=== PATIENT | female | born 1940 | race Caucasian/White ===

== ENCOUNTER 2022-06-04 14:30 | Outpatient (RCR) | payer MEDICARE, MEDICAID, SELFPAY ==
[2022-05-28 13:56] VITALS: BP 165/82; PULSE 77; RESP 16; TEMP 36.3; BMI 30.1
--- NOTE | 2022-05-28 15:24 | HP.PCM_ITS ---
History of Present Illness Date of Service: 05/28/22 Chief Complaint: Right lateral leg ulcer after dog bite on 04/25/22 History of Wound: 81 year old female presents for evaluation of her non healing right lateral leg ulcer that occurred 04/25/22 after she was bit by her cousin's danita more dog. She has seen her PCP several times about this and been to [facility] in [place]. On 05/06/22 she was at her PCPs office due to increased pain and redness and she received a shot of Rocephin and was started on Bactrim. She was being treated with Augmentin prior to that visit. She states she also has been treated with doxycycline. She has been experiencing increased pain and discomfort. She has a medical history of HTN and some kidney issues. She had packing in from the ED that was removed after 7 days as instructed by the ED. She has been covering the ulcer with gauze. Wound culture obtained today, 05/29/22. Today she denies any fever, chills, nausea or vomiting. She states her appetite is good. Progress of Wound: Right lateral leg ulcer with small opening but there is undermining around the entire circumference of the opening with the deepest being 1.5 cm. This is very painful for her. No significant redness or odor. [facility] Medical History Hypertension Kidney disease Home Medications hydrochlorothiazide 25 mg tablet mg PO DAILY 05/28/22 [History Last Taken Unknown] Allergy/AdvReac Type Severity Reaction Status Date / Time acetaminophen [From Vicodin] AdvReac Other Verified 05/28/22 14:07 hydrocodone [From Vicodin] AdvReac Other Verified 05/28/22 14:07 Family History no significant family his no significant family history Social History (Updated 05/29/22 @ 09:32 by Macrina Kay ASSEMBLER FAUCETS, ASSEMBLER [employer]-C) Smoking Status: Never smoker alcohol intake: current alcohol intake frequency: holidays/special occasions only ROS Constitutional Constitutional: Denies fever(s) Eyes Eyes: Reports requires corrective lenses ENT HEENT: Reports none Cardiovascular Cardiovascular: Denies chest pain or dyspnea Respiratory/Chest Respiratory/Chest: Denies cough or dyspnea Gastrointestinal Gastrointestinal: Reports none Musculoskeletal Musculoskeletal: Reports as per HPI Integumentary Integumentary: Reports as per HPI and skin ulcer Neurologic Neurologic: Reports as per HPI Psychiatric Psychiatric: Reports none Endocrine Endocrinology: Reports none Vital Signs Vital Signs Vital Signs: 05/28/22 13:56 Temperature 97.3 F L Temperature Source Temporal Pulse Rate 77 Respiratory Rate 16 Blood Pressure 165/82 H Blood Pressure Mean 109 Blood Pressure Source Monitor Blood Pressure Position Sitting Blood Pressure Location Left Arm Oxygen Delivery Method Room Air Weight Weight: 170 lb Body Mass Index (BMI) 30.1 Physical Exam Const alert, oriented x3 and no apparent distress General Appearance: cooperative HEENT normocephalic Eyes PERRL Neck full ROM Resp normal respiratory effort and normal air movement Effort and Inspection: able to speak in complete sentences Cardio regular rate and regular rhythm GI normal to inspection, nondistended, normoactive bowel sounds, soft to palpation and non-tender Extremity full ROM and normal capillary refill Peripheral Pulses: Yes dorsalis pedis pulses present bilateral 2+ Skin Wounds: wounds noted Wound Narrative: Right lateral leg ulcer with small opening but there is undermining around the entire circumference of the opening with the deepest being 1.5 cm. This is very painful for her. No significant redness or odor. Neuro oriented x3 Psych mental status grossly normal Debridement Note Debridement Note Wound debrided: lateral leg ulcer Laterality: Right Wound Grade/Stage: unstageable Type of Debridement: Excisional debridement Anesthesia Used: 4% Lidocaine Solution and 5% Lidocaine Gel Depth: Down to and including healthy tissue and in the subcutaneous layer Percentage of wound debrided: 100 Instrument Used: 3mm curette Tissue Removed: Devitalized tissue and slough Severity: Fat Layer Exposed Amount of bleeding with debridement: Mild Bleeding Controlled with: Compression and gauze Patient tolerated procedure: Patient tolerated procedure well Debridement Free Text: Difficult to debride due to the small ulcer opening and the amount of the undermining Post-Debridement Measurements and Additional Note: Post-Debridement Measurements/Treatment - Nurse 1 - General Ulcer Assessment Start: 05/28/22 13:52 Freq: Status: Active Protocol: MELISSA Activity Type Activity Date Activity User E-sign Co-sign Detail Recorded Client Recorded Date Recorded By Document 05/28/22 13:56 [facility] [id number] 05/28/22 14:04 [facility] 05/28/22 13:56 - Today's Visit Information Type of service Initial Visit Arrival Mode Ambulatory Transfer Assistance None Accompanied by daughter Patient Identification Verified (Name & Yes ) Patient Requires Transmission-Based No Precautions Height and Weight Height 5 ft 3 in Weight 170 lb Weight in Pounds 170.0 lbs Weight Measurement Method Stated by Patient Body Mass Index (BMI) 30.1 BMI Classification Obese BSA - Kiara 1.80 Vital Signs Temperature (97.8 F-99.1 F) 97.3 F L Temperature Source Temporal Pulse Rate (60-100) 77 Pulse Location Monitor Respiratory Rate (12-18) 16 Respiratory rate source Observation Oxygen Delivery Method Room Air Blood Pressure (90/60-120/80) 165/82 H Blood Pressure Mean 109 Source Monitor Position Sitting Blood Pressure Location Left Arm History Since Last Visit- (Skip if this is Patient's initial visit) Left Footwear Regular Shoe Right Footwear Regular Shoe Pain Scale: 0-10 Numeric Is Patient Pain Free? Yes Lower Extremity Assessment/ Foot Assessment/ Toe Nail Assessment Left -Posterior Tibial Doppler Monophasic -Dorsalis Pedis Doppler Monophasic -Extremity Color Pale -Hair Growth on Legs Yes -Hair Growth on Toes No -Temperature of Extremity Cool -Thick Yes -Discolored Yes -Deformed No -Improper Length & Hygeine Yes Right -Posterior Tibial Doppler Monophasic -Dorsalis Pedis Doppler Monophasic -Extremity Color Pale -Hair Growth on Legs Yes -Hair Growth on Toes No -Temperature of Extremity Cool -Thick Yes -Discolored Yes -Deformed No -Improper Length & Hygeine Yes Communication Assessment Preferred language Bah[place]i Lead Php Developer Required No Able to Read Yes Able to Write Yes Communication Tools None Right Hearing Abillity Normal Left Hearing Abillity Normal Visual Assistive Devices Glasses Teaching Assessment Preferences Verbal,Written, Audio/Visual, Demonstration Barriers to Learning None Readiness To Learn Excellent Willingness to Engage in Self Management High Activies Readiness to Engage in Self Management High Activities Anxiety Level Calm Cooperation Cooperative Perception Coherent Interest in Health Problem Asks Questions Education Importance Acknowledges Need Does Patient Smoke tobacco or other No substances Smoking Status Never smoker Is Patient Diabetic No Functional Assessment Recent Decline in Ability to Perform Denies Any Declines Culture/Anabaptist/Stocking Inspector Cultural/Anabaptist Needs that may affect No Treatment Plan WC - Nurse 1 - General Ulcer Measurement Start: 05/28/22 13:52 Freq: Status: Active Protocol: Activity Type Activity Date Activity User E-sign Co-sign Detail Recorded Client Recorded Date Recorded By Document 05/28/22 13:56 [facility] [id number] 05/28/22 14:04 [facility] 05/28/22 13:56 Wound Center Nurse 1 #1- R LAT LE -Combined with other wound No -Current Size (cm) - Length 0.4 -Current Size (cm) - Width 0.3 -Current Size (cm) - Depth 0.5 -Total Square Cm 0.12 -Date of Last Picture (Recall this 05/28/22 field) -Photo Taken Yes -Epithelialization None Present -Tunneling No -Undermining/Tunneling No -Circular Undermining No -Exudate Amt Medium -Exudate Type Serosanguineous -Wound Margin Distinct, Outline Attached -Granulation Amt Large (67-100%) -Granulation Quality Red -Slough/Fibrin Yes -Necrosis Amt Small (1-33%) -Necrotic Tissue Type Adherent Slough -Texture (Rocio-wound Skin Appearance) Assessed -Moisture (Rocio-wound Skin Appearance) Assessed -Color (Rocio-wound Skin Appearance) Assessed, Erythema -Temperature (Rocio-wound Skin No Abnormality Appearance) (Pt Warm) -Tenderness on Palpation (Rocio-wound No Skin Appearance) -Ulcer Cleansing Rinsed/ Irrigated with Saline -Foul Odor after Cleansing No -Anesthetic Used 5% Lidocaine Gel Lower Limb Edema Present Yes Right Calf (cm) 36 Right Ankle (cm) 21 Left Calf (cm) 33 Left Ankle (cm) 22 WC - Nurse 2 - General Ulcer CM Notes Start: 05/28/22 13:52 Freq: Status: Active Protocol: Activity Type Activity Date Activity User E-sign Co-sign Detail Recorded Client Recorded Date Recorded By Document 05/28/22 14:20 MW [id number] 05/28/22 14:35 MW 05/28/22 14:20 Wound Center Nurse 2 #1- R LAT LE -Time 14:21 -Correct Patient Yes -Correct Side, Site, Position Yes -Correct Procedure Yes -Procedure Performed Yes -Type of Procedure Debridement -Clinical Debridement Subcutaneous -Tissue Removed Subcutaneous -Post Debridement (cm) - Length 0.6 -Post Debridement (cm) - Width 0.5 -Post Debridement (cm) - Depth 0.5 -Total Square (Post) (cm) 0.30 -Area of Debridement (cm) - Length 0.6 -Area of Debridement (cm) - Width 0.5 -Total Square (Area) (cm) 0.30 -Tunneling Yes -Tunneling Position (O'clock) 3 -Tunneling Distance (cm) 1.5 -Undermining/Tunneling Yes -Circular Undermining Yes -Wound/Ulcer Outcome Not Healed -Ulcer Cleansing Rinsed/ Irrigated with Saline -Foul Odor after Cleansing No -Bioengineered Tissue No -Bleeding Controlled with Pressure -Treatment Response Procedure Tolerated Well -Offloading No -Debridement - Subq, 1st 20sq cm Yes Pain Scale: 0-10 Numeric Is Patient Pain Free? Yes - Nurse 3 - General Ulcer D/C NN Start: 05/28/22 13:52 Freq: Status: Active Protocol: Activity Type Activity Date Activity User E-sign Co-sign Detail Recorded Client Recorded Date Recorded By Document 05/28/22 14:50 [facility] [id number] 05/28/22 14:51 [facility] 05/28/22 14:50 Wound Care Nurse 3 #1- R LAT LE -Ulcer Cleansing Rinsed/ Irrigated with Saline -Foul Odor after Cleansing No -Primary Dressing Applied Nugauze, Iodoform -Other Dressing DRSG PER DL FIRE ALARM DISPATCHER -Primary Dressing Covered/Secured with Dry Gauze & Roll Gauze, Secured with Tape -Nugauze, Iodoform 1/4 1 Right -Tubular Bandage Double Layer -Size of Tubigrip Used Size D -Size D ($) 1 Treatment Response Procedure Tolerated Well Pain Scale: 0-10 Numeric Is Patient Pain Free? Yes - Visit Discharge Discharge Condition Stable Ambulatory Status Ambulatory Transportation Private Auto Accompanied by VALE Charges/Coding Visit Charges Office Visits / Consults: 54106 OV L3 New (25 modifier) Procedures Integumentary 111xxx-113xx: [id number] Feli subq tissue 20 sq cm/< Assessment/Plan Assessment/Plan (1) Non-healing ulcer of lower leg: CODE(S): L97.909 - Non-pressure chronic ulcer of unspecified part of unspecified lower leg with unspecified severity (2) Dog bite of right lower leg: CODE(S): S81.851A - Open bite, right lower leg, initial encounter; W54.0XXA - Bitten by dog, initial encounter PLAN: Plan Patient was evaluated at the wound center today and a subcutaneous debridement was performed. She has a small ulcer opening but there is undermining around the entire circumference of the ulcer opening, with the deepest area being 1.5 cm. It is very difficult to do wound care. Wound culture obtained today. Depending on the results of the culture, it may necessitate the need for treatment with antibiotics. Wound care will be difficult due to the size of the ulcer opening. We will pack 1/4 iodoform gauze in the ulcer every other day. On the days the packing is changed, wash the ulcer with soap and water and repack with iodoform and top with gauze. Will refer her to Dr. Sepulveda for evaluation for possible surgical debridement for better wound care management. Discussed increasing protein intake to help promote wound healing and increasing Vitamin C 1,000 mg daily. Follow up one week. Call or come in sooner if develop questions or concerns.
[2022-06-04 14:35] VITALS: BP 152/84; PULSE 88; RESP 16; TEMP 36.2; BMI 30.1
--- NOTE | 2022-06-04 16:34 | PN.PCM_ITS ---
History of Present Illness Date of Service: 06/04/22 Chief Complaint: Right lateral leg ulcer after dog bite on 04/25/22 History of Wound: 81 year old female presents for evaluation of her non healing right lateral leg ulcer that occurred 04/25/22 after she was bit by her cousin's danita more dog. She has seen her PCP several times about this and been to [facility] in [place]. On 05/06/22 she was at her PCPs office due to increased pain and redness and she received a shot of Rocephin and was started on Bactrim. She was being treated with Augmentin prior to that visit. She states she also has been treated with doxycycline. She has been experiencing increased pain and discomfort. She has a medical history of HTN and some kidney issues. She had packing in from the ED that was removed after 7 days as instructed by the ED. She has been covering the ulcer with gauze. Wound culture obtained on 05/29/22 which was positive for Staphylococcus pseudintermediu and she was started on Doxycycline. Today she denies any fever, chills, nausea or vomiting. She states her appetite is good. Progress of Wound: Right lateral leg ulcer is painful, there is small opening but there is undermining from 7-5 o'clock with the deepest being 1.5 cm. Objective Data Objective Data Vital Signs: Vital Signs Temp Pulse Resp BP O2 Del Method 97.1 F L 88 16 152/84 H Room Air 06/04/22 14:35 06/04/22 14:35 06/04/22 14:35 06/04/22 14:35 06/04/22 14:35 Oxygen Delivery Method Room Air Weight: 170 lb Body Mass Index (BMI) 30.1 Lab / Micro Data Micro: Microbiology 05/28/22 14:30 Wound Abcess - Leg, Right Gram Stain - Final 05/28/22 14:30 Wound Abcess - Leg, Right Wound Culture - Final Staphylococcus pseudintermediu 05/28/22 14:30 Wound Abcess - Leg, Right Anaerobic Culture - Final No anaerobic bacteria isolated. Charges/Coding Procedures Integumentary 111xxx-113xx: 30991 Feli subq tissue 20 sq cm/< Physical Exam Const alert and oriented x3 General Appearance: cooperative HEENT normocephalic Resp normal respiratory effort Effort and Inspection: able to speak in complete sentences Cardio regular rate Extremity normal capillary refill Peripheral Pulses: Yes dorsalis pedis pulses present bilateral 2+ Skin Wounds: wounds noted Wound Narrative: Right lateral leg ulcer is painful, there is small opening but there is undermining from 7-5 o'clock with the deepest being 1.5 cm. Neuro oriented x3 Psych mental status grossly normal Debridement Note Debridement Note Wound debrided: lateral leg ulcer Laterality: Right Wound Grade/Stage: unstageable Type of Debridement: Excisional debridement Anesthesia Used: 4% Lidocaine Solution and 5% Lidocaine Gel Depth: Down to and including healthy tissue and in the subcutaneous layer Percentage of wound debrided: 100 Instrument Used: 3mm curette Tissue Removed: Devitalized tissue and slough Severity: Fat Layer Exposed Amount of bleeding with debridement: Mild Bleeding Controlled with: Compression and gauze Patient tolerated procedure: Patient tolerated procedure well Debridement Free Text: Difficult to debride due to the small ulcer opening and the amount of the undermining Post-Debridement Measurements and Additional Note: Post-Debridement Measurements/Treatment - Nurse 1 - General Ulcer Assessment Start: 05/28/22 13:52 Freq: Status: Active Protocol: .LOWHARJIT Activity Type Activity Date Activity User E-sign Co-sign Detail Recorded Client Recorded Date Recorded By Document 05/28/22 13:56 [facility] [id number] 05/28/22 14:04 [facility] Document 06/04/22 14:35 MA [id number] 06/04/22 14:37 MA 05/28/22 06/04/22 13:56 14:35 - Today's Visit Information Type of service Initial Visit Follow-up Visit (Physician/SALES SPECIALIST ) Arrival Mode Ambulatory Ambulatory Transfer Assistance None Accompanied by daughter Patient Identification Verified (Name & Yes Yes ) Patient Requires Transmission-Based No Precautions Height and Weight Height 5 ft 3 in Weight 170 lb Weight in Pounds 170.0 lbs Weight Measurement Method Stated by Patient Body Mass Index (BMI) 30.1 30.1 BMI Classification Obese Obese BSA - Kiara 1.80 Vital Signs Temperature (97.8 F-99.1 F) 97.3 F L 97.1 F L Temperature Source Temporal Temporal Pulse Rate (60-100) 77 88 Pulse Location Monitor Monitor Respiratory Rate (12-18) 16 16 Respiratory rate source Observation Observation Oxygen Delivery Method Room Air Room Air Blood Pressure (90/60-120/80) 165/82 H 152/84 H Blood Pressure Mean (mm Hg) 109 106 Source Monitor Monitor Position Sitting Sitting Blood Pressure Location Left Arm Left Arm History Since Last Visit- (Skip if this is Patient's initial visit) Has dressing in place as prescribed Yes Has compression in place as prescribed Yes Has offloadiing in place as prescribed Yes Experienced any changes in pain level or Yes management Left Footwear Regular Shoe Regular Shoe Right Footwear Regular Shoe Regular Shoe Pain Scale: 0-10 Numeric Is Patient Pain Free? Yes Yes Lower Extremity Assessment/ Foot Assessment/ Toe Nail Assessment Left -Posterior Tibial Doppler Monophasic -Dorsalis Pedis Doppler Monophasic -Extremity Color Pale -Hair Growth on Legs Yes -Hair Growth on Toes No -Temperature of Extremity Cool -Thick Yes -Discolored Yes -Deformed No -Improper Length & Hygeine Yes Right -Posterior Tibial Doppler Monophasic -Dorsalis Pedis Doppler Monophasic -Extremity Color Pale -Hair Growth on Legs Yes -Hair Growth on Toes No -Temperature of Extremity Cool -Thick Yes -Discolored Yes -Deformed No -Improper Length & Hygeine Yes Communication Assessment Preferred language Danish Lighter Captain Required No Able to Read Yes Able to Write Yes Communication Tools None Right Hearing Abillity Normal Left Hearing Abillity Normal Visual Assistive Devices Glasses Teaching Assessment Preferences Verbal,Written, Audio/Visual, Demonstration Barriers to Learning None Readiness To Learn Excellent Willingness to Engage in Self Management High Activies Readiness to Engage in Self Management High Activities Anxiety Level Calm Cooperation Cooperative Perception Coherent Interest in Health Problem Asks Questions Education Importance Acknowledges Need Does Patient Smoke tobacco or other No substances Smoking Status Never smoker Is Patient Diabetic No Functional Assessment Recent Decline in Ability to Perform Denies Any Declines Culture/Orthodox/Skill Labor Cultural/Orthodox Needs that may affect No Treatment Plan WC - Nurse 1 - General Ulcer Measurement Start: 05/28/22 13:52 Freq: Status: Active Protocol: Activity Type Activity Date Activity User E-sign Co-sign Detail Recorded Client Recorded Date Recorded By Document 05/28/22 13:56 [facility] [id number] 05/28/22 14:04 [facility] Document 06/04/22 14:35 MA [id number] 06/04/22 14:37 MA 05/28/22 06/04/22 13:56 14:35 Wound Center Nurse 1 #1- R LAT LE -Combined with other wound No -Current Size (cm) - Length 0.4 1.2 -Current Size (cm) - Width 0.3 0.6 -Current Size (cm) - Depth 0.5 0.5 -Total Square Cm 0.12 0.72 -Date of Last Picture (Recall this 05/28/22 field) -Photo Taken Yes -Epithelialization None Present -Tunneling No Yes -Tunneling Position (O'clock) 11 -Tunneling Distance (cm) 1.2 -Undermining/Tunneling No -Circular Undermining No Yes -Exudate Amt Medium Small -Exudate Type Serosanguineous Serosanguineous -Wound Margin Distinct, Flat & Intact Outline Attached -Granulation Amt Large (67-100%) Large (67-100%) -Granulation Quality Red Red -Slough/Fibrin Yes -Necrosis Amt Small (1-33%) None Present (0 %) -Necrotic Tissue Type Adherent Slough -Texture (Rocio-wound Skin Appearance) Assessed Assessed, Localized Edema -Moisture (Rocio-wound Skin Appearance) Assessed Assessed -Color (Rocio-wound Skin Appearance) Assessed, Assessed, Erythema Hemosiderin Staining -Temperature (Rocio-wound Skin No Abnormality No Abnormality Appearance) (Pt Warm) (Pt Warm) -Tenderness on Palpation (Rocio-wound No No Skin Appearance) -Ulcer Cleansing Rinsed/ Rinsed/ Irrigated with Irrigated with Saline Saline -Foul Odor after Cleansing No No -Anesthetic Used 5% Lidocaine 4% Lidocaine Gel Solution Lower Limb Edema Present Yes Right Calf (cm) 36 Right Ankle (cm) 21 Left Calf (cm) 33 Left Ankle (cm) 22 WC - Nurse 2 - General Ulcer CM Notes Start: 05/28/22 13:52 Freq: Status: Active Protocol: Activity Type Activity Date Activity User E-sign Co-sign Detail Recorded Client Recorded Date Recorded By Document 05/28/22 14:20 [facility] [id number] 05/28/22 14:35 MW Document 06/04/22 15:58 PL [id number] 06/04/22 15:59 PL 05/28/22 06/04/22 14:20 15:58 Wound Center Nurse 2 #1- R LAT LE -Time 14:21 15:03 -Correct Patient Yes Yes -Correct Side, Site, Position Yes Yes -Correct Procedure Yes Yes -Procedure Performed Yes Yes -Type of Procedure Debridement Debridement -Clinical Debridement Subcutaneous Subcutaneous -Tissue Removed Subcutaneous Subcutaneous -Post Debridement (cm) - Length 0.6 1.2 -Post Debridement (cm) - Width 0.5 0.7 -Post Debridement (cm) - Depth 0.5 0.4 -Total Square (Post) (cm) 0.30 0.84 -Area of Debridement (cm) - Length 0.6 1.2 -Area of Debridement (cm) - Width 0.5 0.7 -Total Square (Area) (cm) 0.30 0.84 -Tunneling Yes No -Tunneling Position (O'clock) 3 -Tunneling Distance (cm) 1.5 -Undermining/Tunneling Yes No -Circular Undermining Yes No -Wound/Ulcer Outcome Not Healed Not Healed -Ulcer Cleansing Rinsed/ Rinsed/ Irrigated with Irrigated with Saline Saline -Foul Odor after Cleansing No No -Bioengineered Tissue No No -Bleeding Controlled with Pressure Pressure -Treatment Response Procedure Procedure Tolerated Well Tolerated Well -Offloading No -Debridement - Subq, 1st 20sq cm Yes Yes Pain Scale: 0-10 Numeric Is Patient Pain Free? Yes Yes - Nurse 3 - General Ulcer D/C NN Start: 05/28/22 13:52 Freq: Status: Active Protocol: Activity Type Activity Date Activity User E-sign Co-sign Detail Recorded Client Recorded Date Recorded By Document 05/28/22 14:50 [facility] [id number] 05/28/22 14:51 [facility] Document 06/04/22 16:12 [facility] [id number] 06/04/22 16:13 [facility] 05/28/22 06/04/22 14:50 16:12 Wound Care Nurse 3 #1- R LAT LE -Ulcer Cleansing Rinsed/ Rinsed/ Irrigated with Irrigated with Saline Saline -Foul Odor after Cleansing No No -Negative Pressure Wound Therapy N/A -Setting (mmHg) 150 -Regranex (If Applicable) Start -Primary Dressing Applied Nugauze, Iodoform -Other Dressing DRSG PER DL WATER SERVICE SUPERVISOR -Primary Dressing Covered/Secured with Dry Gauze & Roll Gauze, Secured with Tape -NPWT Application Charge NPWT & Debridement (nc ) -Nugauze, Iodoform 1/ 1 Right -Lotion applied to leg before No compression wrap -Compression Wrap Lorne Wrap -Tubular Bandage Double Layer Double Layer -Size of Tubigrip Used Size D Size F -Size D ($) 1 -Size F ($) 2 Treatment Response Procedure Tolerated Well Pain Scale: 0-10 Numeric Is Patient Pain Free? Yes Yes WC - Visit Discharge Discharge Condition Stable Ambulatory Status Ambulatory Transportation Private Auto Accompanied by VALE Assessment/Plan Assessment/Plan (1) Non-healing ulcer of lower leg: CODE(S): L97.909 - Non-pressure chronic ulcer of unspecified part of u nspecified lower leg with unspecified severity (2) Dog bite of right lower leg: CODE(S): S81.851A - Open bite, right lower leg, initial encounter; W54.0XXA - Bitten by dog, initial encounter PLAN: Plan Patient was evaluated at the wound center today and a subcutaneous debridement was performed. She has a small ulcer opening but there is undermining from 7-5 o'clock. Wound culture obtained on 05/29/22 which was positive for Staphylococcus pseudintermediu and she was started on Doxycycline. Wound care will be difficult due to the size of the ulcer opening. We will pack 1/4 iodoform gauze in the ulcer every other day. On the days the packing is changed, wash the ulcer with soap and water and repack with iodoform and top with gauze. Referred her to Dr. Sepulveda for evaluation for possible surgical debridement for better wound care management, she has an appointment next week with him. Discussed increasing protein intake to help promote wound healing and increasing Vitamin C 1,000 mg daily. Follow up two weeks, due to her appointment with Dr. Sepulveda. Call or come in sooner if develop questions or concerns.
== END 2022-06-10 23:59 | disposition home or self-care (01) ==
LOC: WC 14:30
PROVIDERS: Visit Provider Nurse Practitioner Family
DX: S81.851A Open bite, right lower leg, initial encounter (principal); L97.902 Non-pressure chronic ulcer of unspecified part of unspecified lower leg with fat layer exposed; I10 Essential (primary) hypertension; R60.0 Localized edema; W54.0XXA Bitten by dog, initial encounter
CPT/HCPCS: 11042; 87070; 87075; 87077; 87186; 87205; 99203; G0463

== ENCOUNTER 2022-06-17 12:19 | Day surgery (SDC) | payer MEDICARE, MEDICAID, SELFPAY ==
[2022-06-17] VITALS (8 sets, daily range): BP systolic 147–157; BP diastolic 75–96; PULSE 79–96; RESP 14–18; TEMP 36.5–37.2; O2SAT 94–99; BMI 30.4
--- NOTE | 2022-06-17 13:51 | PCM.HP.BLA ---
History and Physical Patient is an 81 female s/p dog bite to right lower leg. Has been seen by wound care and packing wound. Has undermining circumferentially that is limiting local care options. Had wound culture that was positive and on atbx. No changes since seen in office. Intake Vital Signs ? 06/11/2214:15 Height 5 ft 3 in Weight: 174 lb BMI 30.8 BP 169/90 H Blood Pressure Location Rt brachial Position Sitting Respiration 18 Pulse 80 Pulse Source Monitor Temp 98.2 F Temp Source Temporal Pulse Oximetry (%) 98 Oxygen Delivery Method room air Intake Visit Reasons:?DOG BITE Chief Complaint: burning pain rt leg Allergies acetaminophen [From Vicodin] Adverse Reaction (Verified 05/28/22 14:07) Otherhydrocodone [From Vicodin] Adverse Reaction (Verified 05/28/22 14:07) Other Medications hydrochlorothiazide 25 mg tablet mg PO DAILY 05/28/22 [History Confirmed 06/11/22] doxycycline monohydrate 100 mg tablet 100 mg PO BID 14 days #28 tabs 06/04/22 [Rx Confirmed 06/11/22] PFSH Medical History? Hypertension Kidney disease Surgical History? History of hysterectomy History of tonsillectomy Hx of appendectomy Hx of cholecystectomy Social History? Smoking Status:? Never smoker alcohol intake:? current alcohol intake frequency: holidays/special occasions only ROS General General: Yes weight change and appetite; No fatigue, colon cancer, breast cancer or weakness HEENT HEENT: No difficulty swallowing, eye injury, eye surgery, swollen glands or hoarseness Endo Endocrine: No thyroid disease, diabetes mellitus, thyroid cancer, Hair loss, heat intolerance or cold intolerance Skin Skin: No rash or changing moles Musc Musculoskeletal: Yes back problems and arthritis; No rheumatoid arthritis, gout or joint pain Cardio Cardiovascular: Yes high blood pressure; No murmur, pacemaker, heart disease, atrial fibrillation, heart attack, heart stent, palpitations, shortness of breat with exertion or chest pain Psych Psychiatric: No depression, anxiety or hearing voices Resp Respiratory: No shortness of breath, No sleep apnea, No cough, No COPD, No asthma, No emphysema and No wheezing Gastro Gastrointestinal: No abdominal pain, No nausea or vomiting, No diarrhea, No constipation, No blood in stool, No acid reflux, No hemorrhoids, No ulcers, No gallbladder problem and No black,tarry stools Steve Hematologic: No blood thinners, No blood disorders, No bleeding, No anemia and No blood clots Neuro Neurologic: No system reviewed and no additional complaints, except as documented, No as per HPI, No abnormal gait, No abnormal hearing, No abnormal movements, No abnormal speech, No behavioral changes, No burning sensations, No confusion, No convulsions, No disequilibrium, No dizziness, No localized weakness, No frequent falls, No headache(s), No lack of coordination, No loss of vision, No memory loss, No numbness, No other visual disturbances, No radicular pain, No restless legs, No sensory deficit, No syncope, No tingling, No tremor(s), No weakness and No other Assessment and Plan Assessment and Plan (1) Non-healing ulcer of lower leg: ?Status:?Acute ?Plan: -normal pulse exam, do not expect any arterial insufficiency to contend with -wound with puncture x 2 at center with undermining -will debride in OR, remove undermined skin and any non-viable tissue, exudate to promote favorable healing environment
[2022-06-17] MEDS: Vancomycin IV 1,000 MG/20 ML Vial 1000 MG OPERA.SITE (14:30)
--- NOTE | 2022-06-17 14:38 | DCINST_ITS ---
Discharge Instructions Diet Discharge Diet: No restrictions Activity Discharge Activity: Return to Normal Activity May shower in (days): 2 Weight Bearing Status: Weight bearing as tolerated Dressing / Incision Call your doctor if your incision/area has: Continuous Slow Oozing, Sudden Increased Bleeding, Increased Pain/ Swelling, Increased Redness and Foul Smelling Discharge Call your doctor if you observe: Fever of 101 or Higher Change Dressing in: 2 days (at Wound Center) Follow Up Care Test Results: Test results from this visit will be discussed in further detail at your follow- up appointment, if applicable. Discharge Plan Admission Attending Provider: Alexandre Sepulveda Primary Care Provider: Yoon Jennings Discharge Orders/Prescriptions Prescriptions: New oxycodone-acetaminophen [Percocet] 5-325 mg tablet 1 tab PO Q8H PRN (Reason: pain) 2 Days Qty: 6 0RF Continued hydrochlorothiazide 25 mg Tablet 25 mg PO DAILY doxycycline monohydrate 100 mg tablet 100 mg PO BID 14 Days Qty: 28 0RF acetaminophen 500 mg Tablet 500 mg PO Q6H PRN (Reason: Pain) Referrals / Follow Up: Yoon Jennings PA [Primary Care Provider] - Disposition Disposition (needs filled in before D/C Order can be placed): Home, Self Care
--- NOTE | 2022-06-17 14:47 | PCM.OPRPT ---
Report of Operation Pre-Operative Diagnosis: right lower extremity dog bite wound Post-Operative Diagnosis: same Surgery/Procedure Performed:: debridement skin and subcutaneous tissue 3x2 cm Surgeon: Alexandre Sepulveda Type of Anesthesia: General Description of Procedure: HPI: Patient is an 81-year-old female who suffered a dog bite to the right lower extremity several weeks prior. She has been performing local wound care and is present to the emergency room couple of times with concern for infection. She ultimately cultures that did not reveal some growth and she been placed antibiotics by the wound care center. She referred here for operative debridement to help promote positive healing environment. Due to significant undermining of the skin and portions of the wound which are impeding the local care. Description of procedure: Upon obtaining form consent and verification correct patient procedure site patient was taken the operating was placed under general anesthesia. She was then positioned prepped and draped in usual sterile fashion a timeout performed. This extent of skin undermining was marked and sharp debridement using Metzenbaum scissors utilized to debride all overlying skin of the wound bed. There was satisfactory bleeding from all the cut skin edges as well as in the wound bed which had healthy granulation tissue. Hemostasis was then obtained with Bovie electrocautery and the wound bed debrided with a curette to clear of any exudate. Once her satisfactory appearance of the wound is satisfactory hemostasis a vancomycin soaked Kerlix was placed over the bed of the wound followed by a Kerlix and Lorne wrap. Patient was awakened anesthesia taken the recovery room anticipated discharge home.
== END 2022-06-17 16:13 | disposition home or self-care (01) ==
LOC: SDC 12:19 → AC 12:20
PROVIDERS: Referring Provider Surgery Trauma Surgery; Visit Provider Surgery Trauma Surgery
PROC: (CPT 11042; principal; 2022-06-17 13:50)
DX: L97.909 Non-pressure chronic ulcer of unspecified part of unspecified lower leg with unspecified severity (principal); M06.9 Rheumatoid arthritis, unspecified; N18.30 Chronic kidney disease, stage 3 unspecified; S81.851A Open bite, right lower leg, initial encounter; M79.604 Pain in right leg; W54.0XXA Bitten by dog, initial encounter; I12.9 Hypertensive chronic kidney disease with stage 1 through stage 4 chronic kidney disease, or unspecified chronic kidney disease; Z86.711 Personal history of pulmonary embolism
CPT/HCPCS: 11042; 00400; J7120; J2405

== ENCOUNTER 2022-07-08 13:00 | Outpatient (RCR) | payer MEDICARE, MEDICAID, SELFPAY ==
[2022-06-11 00:46] VITALS: BP 152/84; PULSE 88; RESP 16; TEMP 36.2; BMI 30.1
[2022-06-19 09:33] VITALS: BP 163/80; PULSE 81; TEMP 35.9; BMI 30.1
--- NOTE | 2022-06-19 09:34 | PCM.WC.PN ---
History of Present Illness Date of Service: 06/19/22 Chief Complaint: Right lateral leg ulcer after dog bite on 04/25/22 History of Wound: 81 year old female presents for evaluation of her non healing right lateral leg ulcer that occurred 04/25/22 after she was bit by her cousin's danita more dog. She has seen her PCP several times about this and been to [facility] in [place]. On 05/06/22 she was at her PCPs office due to increased pain and redness and she received a shot of Rocephin and was started on Bactrim. She was being treated with Augmentin prior to that visit. She states she also has been treated with doxycycline. She has been experiencing increased pain and discomfort. She has a medical history of HTN and some kidney issues. She had packing in from the ED that was removed after 7 days as instructed by the ED. She has been covering the ulcer with gauze. Surgery on 06/17/22 - Right lateral leg operative debridement skin and subcutaneous tissue 3x2 cm. Wound culture obtained on 05/29/22 which was positive for Staphylococcus pseudintermediu and she completed Doxycycline. Today she denies any fever, chills, nausea or vomiting. She states her appetite is good. Progress of Wound: Right lateral leg ulcer is beefy pink with good granulation tissue. She is 2 days post op from her operative debridement. Objective Data Objective Data Vital Signs: Vital Signs Temp Pulse Resp BP 97.1 F L 88 16 152/84 H 06/11/22 00:46 06/11/22 00:46 06/11/22 00:46 06/11/22 00:46 Weight: 170 lb Body Mass Index (BMI) 30.1 Charges/Coding Procedures Integumentary 111xxx-113xx: 29311 Global Visit Physical Exam Const alert, oriented x3 and no apparent distress HEENT normocephalic Resp normal respiratory effort Cardio regular rate Extremity Extremity Narrative: +1 edema right leg. Right pedal pulse +2. Skin Wound Narrative: Right lateral leg ulcer is beefy pink. There is some areas of cauterization on the edges of the ulcer. The anibal wound is slightly erythematous, will continue to monitor. Overall ulcer is tender to palpation but looks good. Debridement Note Debridement Note No debridement was completed: No debridement was completed today Assessment/Plan Assessment/Plan (1) Non-healing ulcer of lower leg: CODE(S): L97.909 - Non-pressure chronic ulcer of unspecified part of unspecified lower leg with unspecified severity (2) Dog bite of right lower leg: CODE(S): S81.851A - Open bite, right lower leg, initial encounter; W54.0XXA - Bitten by dog, initial encounter PLAN: Plan Patient was evaluated at the wound center today. No debridement was performed due to her having had an operative debridement 2 days ago. Wound care - Grace covered with gauze daily. Double tubigrip for compression. She would benefit from an advances wound healing product, such as Epifix to help expidite this wound care. Will apply for insurance approval. Wound culture obtained on 05/29/22 which was positive for Staphylococcus pseudintermediu and she has complete the Doxycycline. Discussed increasing protein intake to help promote wound healing and increasing Vitamin C 1,000 mg daily. They are going to start her on Taurus. Follow up two weeks here. Follow up with Dr. Sepulveda as scheduled. Call or come in sooner if develop questions or concerns.
[2022-07-01 10:06] VITALS: BP 143/86; PULSE 91; RESP 18; TEMP 36.3; BMI 30.1
--- NOTE | 2022-07-01 12:50 | PCM.WC.PN ---
History of Present Illness Date of Service: 07/01/22 Chief Complaint: Right lateral leg ulcer after dog bite on 04/25/22 History of Wound: 81 year old female presents for evaluation of her non healing right lateral leg ulcer that occurred 04/25/22 after she was bit by her cousin's danita more dog. She has seen her PCP several times about this and been to [facility] in [place]. On 05/06/22 she was at her PCPs office due to increased pain and redness and she received a shot of Rocephin and was started on Bactrim. She was being treated with Augmentin prior to that visit. She states she also has been treated with doxycycline. She has been experiencing increased pain and discomfort. She has a medical history of HTN and some kidney issues. She had packing in from the ED that was removed after 7 days as instructed by the ED. She has been covering the ulcer with gauze. Surgery on 06/17/22 - Right lateral leg operative debridement skin and subcutaneous tissue 3x2 cm. Wound culture obtained on 05/29/22 which was positive for Staphylococcus pseudintermediu and she completed Doxycycline. Today she denies any fever, chills, nausea or vomiting. She states her appetite is good. Progress of Wound: Right lateral leg ulcer is beefy pink with good granulation tissue. Objective Data Objective Data Vital Signs: Vital Signs Temp Pulse Resp BP 97.3 F L 91 18 143/86 H 07/01/22 10:06 07/01/22 10:06 07/01/22 10:06 07/01/22 10:06 Weight: 170 lb Body Mass Index (BMI) 30.1 Charges/Coding Procedures Integumentary 150xxx-152xx: 76459 Skin sub graft trnk/arm/leg Physical Exam Const alert, oriented x3 and no apparent distress HEENT normocephalic Resp normal respiratory effort Cardio regular rate Extremity Extremity Narrative: +1 edema right leg. Right pedal pulse +2. Skin Wound Narrative: Right lateral leg ulcer is beefy pink. It is smaller since her operative debridement. There no longer is any erythema surrounding the ulcer. Debridement Note Debridement Note Wound debrided: lateral leg ulcer Laterality: Right Type of Debridement: Excisional debridement Anesthesia Used: 4% Lidocaine Solution and 5% Lidocaine Gel Depth: Down to and including healthy tissue and in the subcutaneous layer Percentage of wound debrided: 100 Instrument Used: 5mm curette Tissue Removed: Devitalized tissue and slough Severity: Fat Layer Exposed Amount of bleeding with debridement: Mild Bleeding Controlled with: Compression and gauze Patient tolerated procedure: Patient tolerated procedure well Post-Debridement Measurements and Additional Note: Post-Debridement Measurements/Treatment AILYN - Nurse 1 - General Ulcer Assessment Start: 06/19/22 09:32 Freq: Status: Active Protocol: MELISSA Activity Type Activity Date Activity User E-sign Co-sign Detail Recorded Client Recorded Date Recorded By Document 06/19/22 09:33 AK [id number] 06/19/22 09:35 AK Document 07/01/22 10:06 RB [id number] 07/01/22 10:15 RB 06/19/22 07/01/22 09:33 10:06 AILYN - Today's Visit Information Type of service Follow-up Visit Follow-up Visit (Physician/CAPACITOR TESTER (Physician/CAPACITOR TESTER ) ) Arrival Mode Ambulatory Ambulatory Transfer Assistance None Patient Identification Verified (Name & Yes Yes ) Patient Requires Transmission-Based No Precautions Height and Weight Body Mass Index (BMI) 30.1 30.1 BMI Classification Obese Obese Vital Signs Temperature (97.8 F-99.1 F) 96.6 F L 97.3 F L Temperature Source Temporal Temporal Pulse Rate (60-100) 81 91 Pulse Location Monitor Monitor Respiratory Rate (12-18) 18 Respiratory rate source Observation Blood Pressure (90/60-120/80) 163/80 H 143/86 H Blood Pressure Mean (mm Hg) 107 105 Source Monitor Position Semi-Fowlers Blood Pressure Location Left Arm History Since Last Visit- (Skip if this is Patient's initial visit) Have you changed medications since your No No last visit? Any new allergies or adverse reactions No No Had a fall/change in ADL's that may No No increase risk of falls Signs or symptoms of abuse and/or No No neglect since last visit Have you been in the hospital since your No No last visit? Has dressing in place as prescribed Yes Yes Has compression in place as prescribed Yes Yes Has offloadiing in place as prescribed N/A No Experienced any changes in pain level or No No management Left Footwear Regular Shoe Right Footwear Regular Shoe Pain Scale: 0-10 Numeric Is Patient Pain Free? No Yes AILYN - Nurse 1 - General Ulcer Measurement Start: 06/19/22 09:32 Freq: Status: Active Protocol: Activity Type Activity Date Activity User E-sign Co-sign Detail Recorded Client Recorded Date Recorded By Document 06/19/22 09:33 AK [id number] 06/19/22 09:35 AK Document 07/01/22 10:06 RB [id number] 07/01/22 10:15 RB 06/19/22 07/01/22 09:33 10:06 Wound Center Nurse 1 #1- R LAT LE -Combined with other wound No No -Current Size (cm) - Length 2.6 2.6 -Current Size (cm) - Width 1.8 1.7 -Current Size (cm) - Depth 0.2 0.1 -Total Square Cm 4.68 4.42 -Photo Taken No -Tunneling No No -Undermining/Tunneling No No -Circular Undermining No No -Change in Wound Grade/Stage No -Exudate Amt Medium Medium -Exudate Type Serosanguineous Serosanguineous -Wound Margin Distinct, Distinct, Outline Outline Attached Attached -Granulation Amt Medium (34-66%) Medium (34-66%) -Granulation Quality [place],Red [place] -Slough/Fibrin Yes Yes -Necrosis Amt Small (1-33%) Medium (34-66%) -Necrotic Tissue Type Adherent Slough Adherent Slough -Structure Exposed N/A N/A -Texture (Rocio-wound Skin Appearance) No Abnormality, Assessed Assessed -Moisture (Rocio-wound Skin Appearance) No Abnormality, Assessed Assessed -Color (Rocio-wound Skin Appearance) No Abnormality, Assessed Assessed -Temperature (Rocio-wound Skin No Abnormality No Abnormality Appearance) (Pt Warm) (Pt Warm) -Tenderness on Palpation (Rocio-wound Yes No Skin Appearance) -Ulcer Cleansing Rinsed/ Wound Cleanser Irrigated with Saline -Foul Odor after Cleansing No No -Anesthetic Used 5% Lidocaine 5% Lidocaine Gel Gel Lower Limb Edema Present Yes Right Calf (cm) 36 36.2 Right Ankle (cm) 22 20 WC - Nurse 2 - General Ulcer CM Notes Start: 06/19/22 09:32 Freq: Status: Active Protocol: Activity Type Activity Date Activity User E-sign Co-sign Detail Recorded Client Recorded Date Recorded By Document 07/01/22 10:27 [id number] [id number] 07/01/22 10:30 JF 07/01/22 10:27 Wound Center Nurse 2 #1- R LAT LE -Time 10:27 -Correct Patient Yes -Correct Side, Site, Position Yes -Correct Procedure Yes -Procedure Performed Yes -Type of Procedure Debridement -Clinical Debridement Subcutaneous -Tissue Removed Subcutaneous -Post Debridement (cm) - Length 2.3 -Post Debridement (cm) - Width 1.8 -Post Debridement (cm) - Depth 0.1 -Total Square (Post) (cm) 4.14 -Area of Debridement (cm) - Length 2.3 -Area of Debridement (cm) - Width 1.8 -Total Square (Area) (cm) 4.14 -Tunneling No -Undermining/Tunneling No -Circular Undermining No -Wound/Ulcer Outcome Not Healed -Ulcer Cleansing Rinsed/ Irrigated with Saline -Foul Odor after Cleansing No -Bioengineered Tissue Yes -Type of Bioengineered Tissue Epifix -Expiration Date 03/11/27 -Product Lot Number [id number] -Percent Used 100 -Lot number of Saline Used [id number] -Bleeding Controlled with Pressure -Treatment Response Procedure Tolerated Well -Offloading No -Debridement - Subq, 1st 20sq cm No -Apply Skin Sub - 1st 25 sq cm - Legs 1 -Epifix (per sq cm) 4 Pain Scale: 0-10 Numeric Is Patient Pain Free? Yes - Nurse 3 - General Ulcer D/C NN Start: 06/19/22 09:32 Freq: Status: Active Protocol: Activity Type Activity Date Activity User E-sign Co-sign Detail Recorded Client Recorded Date Recorded By Document 06/19/22 09:33 AK [id number] 06/19/22 09:35 AK Document 06/19/22 09:49 RB [id number] 06/19/22 09:50 RB Document 07/01/22 10:45 DL [id number] 07/01/22 10:46 DL 06/19/22 06/19/22 07/01/22 09:33 09:49 10:45 Vital Signs Temperature (97.8 F-99.1 F) 96.6 F L Temperature Source Temporal Pulse Rate (60-100) 81 Pulse Location Monitor Blood Pressure (90/60-120/80) 163/80 H Blood Pressure Mean (mm Hg) 107 Pain Scale: 0-10 Numeric Is Patient Pain Free? No Yes Yes Wound Care Nurse 3 #1- R LAT LE -Foul Odor after Cleansing No -Primary Dressing Applied Promogran Grace Matter -Other Dressing Epifix -Primary Dressing Covered/Secured with Dry Gauze,Dry Dry Gauze & Gauze & Roll Roll Gauze, Gauze,Secured Secured with with Tape Tape -Promogran Grace Matter 1 Right -Tubular Bandage Double Layer Double Layer -Size of Tubigrip Used Size E Size E -Size E ($) 2 2 Treatment Response Procedure Tolerated Well WC - Visit Discharge Discharge Condition Stable Stable Ambulatory Status Ambulatory Ambulatory Transportation Private Auto Private Auto Medication Reconcilliation completed & No provided to patient/care provider Clinical Summary of Care Provided Yes Notes: Dressing applied per Tess Vee RN today in clinic. Assessment/Plan Assessment/Plan (1) Non-healing ulcer of lower leg: CODE(S): L97.909 - Non-pressure chronic ulcer of unspecified part of unspecified lower leg with unspecified severity (2) Dog bite of right lower leg: CODE(S): S81.851A - Open bite, right lower leg, initial encounter; W54.0XXA - Bitten by dog, initial encounter PLAN: Plan Patient was evaluated at the wound center today. A subcutaneous debridement was performed as documented. She has been approved for Epifix. Wound care - Epifix #1, 2x2 cm applied today, 100% of the product was used. Skin prep applied surrounding the ulcer, wound veil placed over the ulcer and secured with steri strips. Covered with gauze. The outer gauze dressing can be changed as needed. Double tubigrip for compression. Wound culture obtained on 05/29/22 which was positive for Staphylococcus pseudintermediu and she has complete the Doxycycline. Discussed increasing protein intake to help promote wound healing and increasing Vitamin C 1,000 mg daily. They are going to start her on Taurus. Follow up one week. Call or come in sooner if develop questions or concerns.
[2022-07-08 10:27] VITALS: BP 192/95; PULSE 82; RESP 20; TEMP 35.8; BMI 30.1
--- NOTE | 2022-07-08 12:47 | PCM.WC.PN ---
History of Present Illness Date of Service: 07/08/22 Chief Complaint: Right lateral leg ulcer after dog bite on 04/25/22 History of Wound: 81 year old female presents for evaluation of her non healing right lateral leg ulcer that occurred 04/25/22 after she was bit by her cousin's danita more dog. She has seen her PCP several times about this and been to [facility] in [place]. On 05/06/22 she was at her PCPs office due to increased pain and redness and she received a shot of Rocephin and was started on Bactrim. She was being treated with Augmentin prior to that visit. She states she also has been treated with doxycycline. She has been experiencing increased pain and discomfort. She has a medical history of HTN and some kidney issues. She had packing in from the ED that was removed after 7 days as instructed by the ED. She has been covering the ulcer with gauze. Surgery on 06/17/22 - Right lateral leg operative debridement skin and subcutaneous tissue 3x2 cm. Wound culture obtained on 05/29/22 which was positive for Staphylococcus pseudintermediu and she completed Doxycycline. Today she denies any fever, chills, nausea or vomiting. She states her appetite is good. Progress of Wound: Right lateral leg ulcer is beefy pink with good granulation tissue. Today she complains about right leg pain, both anteriorly posteriorly with a positive Homans' sign. 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 Objective Data Objective Data Vital Signs: Vital Signs Temp Pulse Resp BP 96.5 F L 82 20 H 192/95 H 07/08/22 10:27 07/08/22 10:27 07/08/22 10:07/08/22 10: Weight: 170 lb Body Mass Index (BMI) 30.1 Charges/Coding Procedures Integumentary 150xxx-152xx: 81683 Skin sub graft trnk/arm/leg Physical Exam Const alert, oriented x3 and no apparent distress HEENT normocephalic Resp normal respiratory effort Cardio regular rate Extremity Extremity Narrative: +1 edema right leg. Right pedal pulse +2. She is having right leg pain, positive Homans' sign. Right leg tender to palpation. Skin Wound Narrative: Right lateral leg ulcer is beefy pink. It is smaller since her operative debridement. There no longer is any erythema surrounding the ulcer. Psych affect normal Debridement Note Debridement Note Wound debrided: lateral leg ulcer Laterality: Right Type of Debridement: Excisional debridement Anesthesia Used: 4% Lidocaine Solution and 5% Lidocaine Gel Depth: Down to and including healthy tissue and in the subcutaneous layer Percentage of wound debrided: 100 Instrument Used: 5mm curette Tissue Removed: Devitalized tissue and slough Severity: Fat Layer Exposed Amount of bleeding with debridement: Mild Bleeding Controlled with: Compression and gauze Patient tolerated procedure: Patient tolerated procedure well Post-Debridement Measurements and Additional Note: Post-Debridement Measurements/Treatment - Nurse 1 - General Ulcer Assessment Start: 06/19/22 09:32 Freq: Status: Active Protocol: MELISSA Activity Type Activity Date Activity User E-sign Co-sign Detail Recorded Client Recorded Date Recorded By Document 06/19/22 09:33 AK [id number] 06/19/22 09:35 AK Document 07/01/22 10:06 RB [id number] 07/01/22 10:15 RB Document 07/08/22 10:27 DL [id number] 07/08/22 10:35 DL 06/19/22 07/01/22 07/08/22 09:33 10:06 10:27 - Today's Visit Information Type of service Follow-up Visit Follow-up Visit Follow-up Visit (Physician/TRANSMISSION AND PROTECTION ENGINEER (Physician/TRANSMISSION AND PROTECTION ENGINEER (Physician/TRANSMISSION AND PROTECTION ENGINEER ) ) ) Arrival Mode Ambulatory Ambulatory Ambulatory Transfer Assistance None None Patient Identification Verified (Name & Yes Yes Yes ) Patient Requires Transmission-Based No No Precautions Height and Weight Body Mass Index (BMI) 30.1 30.1 30.1 BMI Classification Obese Obese Obese Vital Signs Temperature (97.8 F-99.1 F) 96.6 F L 97.3 F L 96.5 F L Temperature Source Temporal Temporal Temporal Pulse Rate (60-100) 81 91 82 Pulse Location Monitor Monitor Monitor Respiratory Rate (12-18) 18 20 H Respiratory rate source Observation Observation Blood Pressure (90/60-120/80) 163/80 H 143/86 H 192/95 H Blood Pressure Mean (mm Hg) 107 105 127 Source Monitor Monitor Position Semi-Fowlers Blood Pressure Location Left Arm History Since Last Visit- (Skip if this is Patient's initial visit) Have you changed medications since your No No No last visit? Any new allergies or adverse reactions No No No Had a fall/change in ADL's that may No No No increase risk of falls Signs or symptoms of abuse and/or No No No neglect since last visit Have you been in the hospital since your No No No last visit? Has dressing in place as prescribed Yes Yes Yes Has compression in place as prescribed Yes Yes Yes Has offloadiing in place as prescribed N/A No N/A Experienced any changes in pain level or No No No management Left Footwear Regular Shoe Right Footwear Regular Shoe Pain Scale: 0-10 Numeric Is Patient Pain Free? No Yes Yes WC - Nurse 1 - General Ulcer Measurement Start: 06/19/22 09:32 Freq: Status: Active Protocol: Activity Type Activity Date Activity User E-sign Co-sign Detail Recorded Client Recorded Date Recorded By Document 06/19/22 09:33 AK [id number] 06/19/22 09:35 AK Document 07/01/22 10:06 RB [id number] 07/01/22 10:15 RB Document 07/08/22 10:27 DL [id number] 07/08/22 10:35 DL 06/19/22 07/01/22 07/08/22 09:33 10:06 10:27 Wound Center Nurse 1 #1- R LAT LE -Combined with other wound No No -Current Size (cm) - Length 2.6 2.6 2.4 -Current Size (cm) - Width 1.8 1.7 1.7 -Current Size (cm) - Depth 0.2 0.1 0.2 -Total Square Cm 4.68 4.42 4.08 -Photo Taken No Yes -Tunneling No No -Undermining/Tunneling No No -Circular Undermining No No -Change in Wound Grade/Stage No -Exudate Amt Medium Medium Medium -Exudate Type Serosanguineous Serosanguineous Serosanguineous -Wound Margin Distinct, Distinct, Distinct, Outline Outline Outline Attached Attached Attached -Granulation Amt Medium (34-66%) Medium (34-66%) Large (67-100%) -Granulation Quality [place],Red [place] Red -Slough/Fibrin Yes Yes -Necrosis Amt Small (1-33%) Medium (34-66%) Small (1-33%) -Necrotic Tissue Type Adherent Slough Adherent Slough Adherent Slough -Structure Exposed N/A N/A N/A -Texture (Rocio-wound Skin Appearance) No Abnormality, Assessed Scarring Assessed -Moisture (Rocio-wound Skin Appearance) No Abnormality, Assessed No Abnormality Assessed -Color (Rocio-wound Skin Appearance) No Abnormality, Assessed No Abnormality Assessed -Temperature (Rocio-wound Skin No Abnormality No Abnormality No Abnormality Appearance) (Pt Warm) (Pt Warm) (Pt Warm) -Tenderness on Palpation (Rocio-wound Yes No No Skin Appearance) -Ulcer Cleansing Rinsed/ Wound Cleanser Soap and Water Irrigated with Saline -Foul Odor after Cleansing No No No -Anesthetic Used 5% Lidocaine 5% Lidocaine 5% Lidocaine Gel Gel Gel Lower Limb Edema Present Yes Right Calf (cm) 36 36.2 36.5 Right Ankle (cm) 22 20 20.5 WC - Nurse 2 - General Ulcer CM Notes Start: 06/19/22 09:32 Freq: Status: Active Protocol: Activity Type Activity Date Activity User E-sign Co-sign Detail Recorded Client Recorded Date Recorded By Document 07/01/22 10:27 [id number] 07/01/22 10:30 Document 07/08/22 10:58 Desktop 07/08/22 11:00 07/01/22 07/08/22 10:27 10:58 Wound Center Nurse 2 #1- R LAT LE -Time 10:27 10:58 -Correct Patient Yes Yes -Correct Side, Site, Position Yes Yes -Correct Procedure Yes Yes -Procedure Performed Yes Yes -Type of Procedure Debridement Debridement -Clinical Debridement Subcutaneous Subcutaneous -Tissue Removed Subcutaneous Subcutaneous -Post Debridement (cm) - Length 2.3 2.6 -Post Debridement (cm) - Width 1.8 1.6 -Post Debridement (cm) - Depth 0.1 0.1 -Total Square (Post) (cm) 4.14 4.16 -Area of Debridement (cm) - Length 2.3 2.6 -Area of Debridement (cm) - Width 1.8 1.6 -Total Square (Area) (cm) 4.14 4.16 -Tunneling No No -Undermining/Tunneling No No -Circular Undermining No No -Wound/Ulcer Outcome Not Healed Not Healed -Ulcer Cleansing Rinsed/ Rinsed/ Irrigated with Irrigated with Saline Saline -Foul Odor after Cleansing No No -Bioengineered Tissue Yes Yes -Type of Bioengineered Tissue Epifix Epifix -Expiration Date 03/11/27 03/11/27 -Product Lot Number [id number] -Percent Used 100 100 -Lot number of Saline Used [id number] -Bleeding Controlled with Pressure Pressure -Treatment Response Procedure Procedure Tolerated Well Tolerated Well -Offloading No No -Debridement - Subq, 1st 20sq cm No No -Apply Skin Sub - 1st 25 sq cm - Legs 1 1 -Epifix (per sq cm) 4 4 Pain Scale: 0-10 Numeric Is Patient Pain Free? Yes Yes WC - Nurse 3 - General Ulcer D/C NN Start: 06/19/22 09:32 Freq: Status: Active Protocol: Activity Type Activity Date Activity User E-sign Co-sign Detail Recorded Client Recorded Date Recorded By Document 06/19/22 09:33 AK [id number] 06/19/22 09:35 AK Document 06/19/22 09:49 RB [id number] 06/19/22 09:50 RB Document 07/01/22 10:45 DL [id number] 07/01/22 10:46 DL Document 07/08/22 11:13 DL [id number] 07/08/22 11:14 DL 06/19/22 06/19/22 07/01/22 09:33 09:49 10:45 Vital Signs Temperature (97.8 F-99.1 F) 96.6 F L Temperature Source Temporal Pulse Rate (60-100) 81 Pulse Location Monitor Blood Pressure (90/60-120/80) 163/80 H Blood Pressure Mean (mm Hg) 107 Pain Scale: 0-10 Numeric Is Patient Pain Free? No Yes Yes Wound Care Nurse 3 #1- R LAT LE -Ulcer Cleansing -Foul Odor after Cleansing No -Primary Dressing Applied Promogran Grace Matter -Other Dressing Epifix -Primary Dressing Covered/Secured with Dry Gauze,Dry Dry Gauze & Gauze & Roll Roll Gauze, Gauze,Secured Secured with with Tape Tape -Other Covering -Promogran Grace Matter 1 Right -Tubular Bandage Double Layer Double Layer -Size of Tubigrip Used Size E Size E -Size E ($) 2 2 Treatment Response Procedure Tolerated Well WC - Visit Discharge Discharge Condition Stable Stable Ambulatory Status Ambulatory Ambulatory Transportation Private Auto Private Auto Accompanied by Medication Reconcilliation completed & No provided to patient/care provider Clinical Summary of Care Provided Yes Notes: Dressing applied per Tess Vee RN today in clinic. Facility Type Orders Sent 07/08/22 11:13 Vital Signs Temperature (97.8 F-99.1 F) Temperature Source Pulse Rate (60-100) Pulse Location Blood Pressure (90/60-120/80) Blood Pressure Mean (mm Hg) Pain Scale: 0-10 Numeric Is Patient Pain Free? Yes Wound Care Nurse 3 #1- R LAT LE -Ulcer Cleansing Not Cleansed -Foul Odor after Cleansing -Primary Dressing Applied -Other Dressing Epifix -Primary Dressing Covered/Secured with Dry Gauze & Roll Gauze, Secured with Tape -Other Covering Tubigrip -Promogran Grace Matter Right -Tubular Bandage -Size of Tubigrip Used -Size E ($) Treatment Response Procedure Tolerated Well WC - Visit Discharge Discharge Condition Stable Ambulatory Status Ambulatory Transportation Private Auto Accompanied by family Medication Reconcilliation completed & provided to patient/care provider Clinical Summary of Care Provided Notes: Facility Type Home Health Orders Sent Yes Assessment/Plan Assessment/Plan (1) Non-healing ulcer of lower leg: CODE(S): L97.909 - Non-pressure chronic ulcer of unspecified part of unspecified lower leg with unspecified severity (2) Dog bite of right lower leg: CODE(S): S81.851A - Open bite, right lower leg, initial encounter; W54.0XXA - Bitten by dog, initial encounter (3) Right leg pain: CODE(S): M79.604 - Pain in right leg (4) Ragland's reflex positive: CODE(S): R29.2 - Abnormal reflex PLAN: Plan Patient was evaluated at the wound center today. A subcutaneous debridement was performed as documented. She has been approved for Epifix. Wound care - Epifix #2, 2x2 cm applied today, 100% of the product was used. Skin prep applied surrounding the ulcer, wound veil placed over the ulcer and secured with steri strips. Covered with gauze. The outer gauze dressing can be changed as needed. Double tubigrip for compression. Wound culture obtained on 05/29/22 which was positive for Staphylococcus pseudintermediu and she has complete the Doxycycline. Discussed increasing protein intake to help promote wound healing and increasing Vitamin C 1,000 mg daily. They are going to start her on Taurus. Ultrasound of right leg obtained today, 07/08/22, it was negative for a DVT and valves appear competent. She was notified by phone of the results of the ultrasound. Follow up one week. Call or come in sooner if develop questions or concerns.
--- NOTE | 2022-07-08 12:58 | VDLE_ITS ---
Reason For Study: Leg pain RIGHT GSV is normal. CFV is compressible, spontaneous, phasic, competent and demonstrates normal augmentation. FV is compressible, spontaneous, phasic, competent and demonstrates normal augmentation. POP V is compressible, spontaneous, phasic, competent and demonstrates normal augmentation. T/P Trunk is compressible. PTV is compressible. RT PerV is compressible. Procedure This is a venous duplex using B-mode, color flow and spectral Doppler. Exam performed in department. A preliminary report was called and/or faxed to [facility] and [facility]. VL/Venous Duplex US, Unilateral Interpretation Summary Deep veins of the right lower extremity are patent and compressible segmentally . There is no evidence of right lower extremity deep vein thrombosis. Valvular competence aliza ears intact within the proximal deep venous system on the right . The right great saphenous vein a ppears patent and compressible segmentally. Ordering Physician: Macrina Kay Referring Physician: Yoon Jennings Performed By: Rasheeda Hutchins RVT
== END 2022-07-10 23:59 | disposition home or self-care (01) ==
LOC: WC 13:00
PROVIDERS: Visit Provider Nurse Practitioner Family
DX: S81.851A Open bite, right lower leg, initial encounter (principal); L97.812 Non-pressure chronic ulcer of other part of right lower leg with fat layer exposed; M79.604 Pain in right leg; I10 Essential (primary) hypertension; W54.0XXA Bitten by dog, initial encounter; R29.2 Abnormal reflex
CPT/HCPCS: 15271; 93971; 99213; Q4186; G0463

== ENCOUNTER → 2022-07-16 | Outpatient (CLI) | payer MEDICARE, MEDICAID, SELFPAY ==
--- NOTE | 2022-07-16 09:32 | CDU_ITS ---
Reason For Study: prominent R carotid pulse, assess for aneurysm Rt. Velocities/BP Lt. Velocities/BP Prox CCA 100.3/20.1 cm/sec. Prox CCA 77.7/17.6 cm/sec. Mid CCA 70.7/17.9 cm/sec. Mid CCA 61.8/12.6 cm/sec. Dist CCA 58.6/19.0 cm/sec. Dist CCA 54.4/13.9 cm/sec. Prox ICA 45.4/14.6 cm/sec. Prox ICA 501.7/16.3 cm/sec. Mid ICA 55.3/15.7 cm/sec. Mid ICA 81.9/25.8 cm/sec. Dist ICA 602.8/14.6 cm/sec. Dist ICA 68.2/17.0 cm/sec. Rt. ICA/CCA = .9. Lt. ICA/CCA = 1.3. Prox ECA 71.8/12.4 cm/sec. Prox ECA 60.5/10.2 cm/sec. Rt. Vert. 65.2/16.8 cm/sec. Lt. Vert. 36.2/4.1 cm/sec. Right Extracranial There is intimal thickening but no significant atherosclerotic plaque noted in the right common carotid artery. The right common carotid artery is tortuous. There is intimal thickening but no significant atherosclerotic plaque noted in the right internal carotid artery. There is intimal thickening but no significant atherosclerotic plaque noted in the right external carotid artery. Antegrade flow is noted in the right vertebral artery. Left Extracranial There is intimal thickening but no significant atherosclerotic plaque noted in the left common carotid artery. There is intimal thickening but no significant atherosclerotic plaque noted in the left internal carotid artery. The left internal carotid artery is very tortuous. There is intimal thickening but no significant atherosclerotic plaque noted in the left external carotid artery. Antegrade flow is noted in the left vertebral artery. Procedure Carotid Duplex 18253. This is a Carotid Duplex examination using B-mode, color flow and specral Doppler. The exam was diagnostic. Exam performed in department. VL/Carotid Duplex Ultrasound Interpretation Summary Normal right extracranial internal carotid. Normal left extracranial internal carotid. Patent and antegrade vertebrals bilaterally. Ordering Physician: Alexandre Sepulveda Performed By: Greg Nazario RVT
== END | disposition home or self-care (01) ==
LOC: CVS 09:31
PROVIDERS: Referring Provider Surgery Trauma Surgery; Visit Provider Surgery Trauma Surgery
DX: I72.0 Aneurysm of carotid artery (principal)
CPT/HCPCS: 93880

== ENCOUNTER 2022-08-05 11:30 | Outpatient (RCR) | payer MEDICARE, MEDICAID, SELFPAY ==
[2022-07-15 00:04] VITALS: BP 192/95; PULSE 82; RESP 20; TEMP 35.8; BMI 30.1
[2022-07-15 10:41] VITALS: BP 164/100; PULSE 94; RESP 18; TEMP 36.1; BMI 30.1
--- NOTE | 2022-07-15 12:28 | PN.PCM_ITS ---
History of Present Illness Date of Service: 07/15/22 Chief Complaint: Right lateral leg ulcer after dog bite on 04/25/22 History of Wound: 81 year old female presents for evaluation of her non healing right lateral leg ulcer that occurred 04/25/22 after she was bit by her cousin's danita more dog. She has seen her PCP several times about this and been to [facility] in [place]. On 05/06/22 she was at her PCPs office due to increased pain and redness and she received a shot of Rocephin and was started on Bactrim. She was being treated with Augmentin prior to that visit. She states she also has been treated with doxycycline. She has been experiencing increased pain and discomfort. She has a medical history of HTN and some kidney issues. She had packing in from the ED that was removed after 7 days as instructed by the ED. She has been covering the ulcer with gauze. Surgery on 06/17/22 - Right lateral leg operative debridement skin and subcutaneous tissue 3x2 cm. Wound culture obtained on 05/29/22 which was positive for Staphylococcus pseudintermediu and she completed Doxycycline. Today she denies any fever, chills, nausea or vomiting. She states her appetite is good. Progress of Wound: Left leg ulcer is smaller in size and the base is a nice beefy pink color. She is no longer having the left lower leg pain that she was experiencing last week when the ultrasound was obtained. Objective Data Objective Data Vital Signs: Vital Signs Temp Pulse Resp BP 97 F L 94 18 164/100 H 07/15/22 10:41 07/15/22 10:41 07/15/22 10:41 07/15/22 10:41 Weight: 170 lb Body Mass Index (BMI) 30.1 Charges/Coding Procedures Integumentary 150xxx-152xx: 16361 Skin sub graft trnk/arm/leg Physical Exam Const alert, oriented x3 and no apparent distress HEENT normocephalic Resp normal respiratory effort Cardio regular rate Extremity Extremity Narrative: +1 edema right leg. Right pedal pulse +2. Skin Wound Narrative: Right lateral leg ulcer is beefy pink. It is smaller in size. Psych affect normal Debridement Note Debridement Note Wound debrided: lateral leg ulcer Laterality: Right Type of Debridement: Excisional debridement Anesthesia Used: 4% Lidocaine Solution and 5% Lidocaine Gel Depth: Down to and including healthy tissue and in the subcutaneous layer Percentage of wound debrided: 100 Instrument Used: 5mm curette Tissue Removed: Devitalized tissue and slough Severity: Fat Layer Exposed Amount of bleeding with debridement: Mild Bleeding Controlled with: Compression and gauze Patient tolerated procedure: Patient tolerated procedure well Post-Debridement Measurements and Additional Note: Post-Debridement Measurements/Treatment AILYN - Nurse 1 - General Ulcer Assessment Start: 07/15/22 10:41 Freq: Status: Active Protocol: MELISSA Activity Type Activity Date Activity User E-sign Co-sign Detail Recorded Client Recorded Date Recorded By Document 07/15/22 10:41 RYLIE [id number] 07/15/22 10:44 RB 07/15/22 10:41 AILYN - Today's Visit Information Type of service Follow-up Visit (Physician/ESTATE PLANNER ) Arrival Mode Ambulatory Transfer Assistance None Patient Identification Verified (Name & Yes ) Patient Requires Transmission-Based No Precautions Height and Weight Body Mass Index (BMI) 30.1 BMI Classification Obese Vital Signs Temperature (97.8 F-99.1 F) 97 F L Temperature Source Temporal Pulse Rate (60-100) 94 Pulse Location Monitor Respiratory Rate (12-18) 18 Respiratory rate source Observation Blood Pressure (90/60-120/80) 164/100 H Blood Pressure Mean (mm Hg) 121 Source Monitor Position Semi-Fowlers Blood Pressure Location Left Arm History Since Last Visit- (Skip if this is Patient's initial visit) Have you changed medications since your No last visit? Any new allergies or adverse reactions No Had a fall/change in ADL's that may No increase risk of falls Signs or symptoms of abuse and/or No neglect since last visit Have you been in the hospital since your No last visit? Has dressing in place as prescribed Yes Has compression in place as prescribed Yes Has offloadiing in place as prescribed No Experienced any changes in pain level or No management Left Footwear Regular Shoe Right Footwear Regular Shoe Pain Scale: 0-10 Numeric Is Patient Pain Free? Yes AILYN Wallace Nurse 1 - General Ulcer Measurement Start: 07/15/22 10:41 Freq: Status: Active Protocol: Activity Type Activity Date Activity User E-sign Co-sign Detail Recorded Client Recorded Date Recorded By Document 07/15/22 10:41 RYLIE [id number] 07/15/22 10:44 RB 07/15/22 10:41 Wound Center Nurse 1 #1- R LAT LE -Combined with other wound No -Current Size (cm) - Length 2.2 -Current Size (cm) - Width 1.3 -Current Size (cm) - Depth 0.1 -Total Square Cm 2.86 -Photo Taken Yes -Tunneling No -Undermining/Tunneling No -Circular Undermining No -Exudate Amt Medium -Exudate Type Serosanguineous -Wound Margin Distinct, Outline Attached -Granulation Amt Medium (34-66%) -Granulation Quality [place] -Slough/Fibrin Yes -Necrosis Amt Small (1-33%) -Necrotic Tissue Type Adherent Slough -Structure Exposed N/A -Texture (Rocio-wound Skin Appearance) Assessed -Moisture (Rocio-wound Skin Appearance) Assessed -Color (Rocio-wound Skin Appearance) Assessed -Temperature (Rocio-wound Skin No Abnormality Appearance) (Pt Warm) -Tenderness on Palpation (Rocio-wound No Skin Appearance) -Ulcer Cleansing Wound Cleanser -Foul Odor after Cleansing No -Anesthetic Used 5% Lidocaine Gel Lower Limb Edema Present Yes Right Calf (cm) 34 Right Ankle (cm) 20.2 WC - Nurse 2 - General Ulcer CM Notes Start: 07/15/22 10:41 Freq: Status: Active Protocol: Activity Type Activity Date Activity User E-sign Co-sign Detail Recorded Client Recorded Date Recorded By Document 07/15/22 11:01 LUCY [id number] 07/15/22 11:06 LUCY 07/15/22 11:01 Wound Center Nurse 2 #1- R LAT LE -Time 11:01 -Correct Patient Yes -Correct Side, Site, Position Yes -Correct Procedure Yes -Procedure Performed Yes -Type of Procedure Debridement -Clinical Debridement Subcutaneous -Tissue Removed Subcutaneous -Post Debridement (cm) - Length 2.2 -Post Debridement (cm) - Width 1.2 -Post Debridement (cm) - Depth 0.1 -Total Square (Post) (cm) 2.64 -Area of Debridement (cm) - Length 2.2 -Area of Debridement (cm) - Width 1.2 -Total Square (Area) (cm) 2.64 -Tunneling No -Undermining/Tunneling No -Circular Undermining No -Wound/Ulcer Outcome Not Healed -Ulcer Cleansing Rinsed/ Irrigated with Saline -Foul Odor after Cleansing No -Bioengineered Tissue Yes -Type of Bioengineered Tissue Epifix -Expiration Date 03/11/27 -Product Lot Number [id number] -Percent Used 100 -Lot number of Saline Used [id number] -Bleeding Controlled with Pressure -Treatment Response Procedure Tolerated Well -Offloading No -Debridement - Subq, 1st 20sq cm No -Apply Skin Sub - 1st 25 sq cm - Legs 1 -Epifix (per sq cm) 4 Pain Scale: 0-10 Numeric Is Patient Pain Free? Yes - Nurse 3 - General Ulcer D/C NN Start: 07/15/22 10:41 Freq: Status: Active Protocol: Activity Type Activity Date Activity User E-sign Co-sign Detail Recorded Client Recorded Date Recorded By Document 07/15/22 11:20 RB [id number] 07/15/22 11:21 RB 07/15/22 11:20 Wound Care Nurse 3 #1- R LAT LE -Primary Dressing Covered/Secured with Dry Gauze,Dry Gauze & Roll Gauze,Secured with Tape Right -Tubular Bandage Double Layer -Size of Tubigrip Used Size E -Size E ($) 2 Pain Scale: 0-10 Numeric Is Patient Pain Free? Yes - Visit Discharge Discharge Condition Stable Ambulatory Status Ambulatory Transportation Private Auto Medication Reconcilliation completed & No provided to patient/care provider Clinical Summary of Care Provided Yes Assessment/Plan Assessment/Plan (1) Non-healing ulcer of lower leg: CODE(S): L97.909 - Non-pressure chronic ulcer of unspecified part of unspecified lower leg with unspecified severity (2) Dog bite of right lower leg: CODE(S): S81.851A - Open bite, right lower leg, initial encounter; W54.0XXA - Bitten by dog, initial encounter (3) Right leg pain: CODE(S): M79.604 - Pain in right leg (4) Ragland's reflex positive: CODE(S): R29.2 - Abnormal reflex PLAN: Plan Patient was evaluated at the wound center today. A subcutaneous debridement was performed as documented. She has been approved for Epifix. Wound care - Epifix #3, 2x2 cm applied today, 100% of the product was used. Skin prep applied surrounding the ulcer, wound veil placed over the ulcer and secured with steri strips. Covered with gauze. The outer gauze dressing can be changed as needed. Double tubigrip for compression. Wound culture obtained on 05/29/22 which was positive for Staphylococcus pseudintermediu and she has complete the Doxycycline. Discussed increasing protein intake to help promote wound healing and increasing Vitamin C 1,000 mg daily. They are going to start her on Taurus. Ultrasound of right leg obtained 07/08/22, it was negative for a DVT and valves appear competent. She is no longer having the paink. Follow up one week. Call or come in sooner if develop questions or concerns.
[2022-07-22 10:45] VITALS: BP 162/75; PULSE 73; RESP 18; TEMP 36.1; BMI 30.1
--- NOTE | 2022-07-22 12:34 | PN.PCM_ITS ---
History of Present Illness Date of Service: 07/22/22 Chief Complaint: Right lateral leg ulcer after dog bite on 04/25/22 History of Wound: 81 year old female presents for evaluation of her non healing right lateral leg ulcer that occurred 04/25/22 after she was bit by her cousin's danita more dog. She has seen her PCP several times about this and been to [facility] in [place]. On 05/06/22 she was at her PCPs office due to increased pain and redness and she received a shot of Rocephin and was started on Bactrim. She was being treated with Augmentin prior to that visit. She states she also has been treated with doxycycline. She has been experiencing increased pain and discomfort. She has a medical history of HTN and some kidney issues. She had packing in from the ED that was removed after 7 days as instructed by the ED. She has been covering the ulcer with gauze. Surgery on 06/17/22 - Right lateral leg operative debridement skin and subcutaneous tissue 3x2 cm. Wound culture obtained on 05/29/22 which was positive for Staphylococcus pseudintermediu and she completed Doxycycline. Today she denies any fever, chills, nausea or vomiting. She states her appetite is good. Progress of Wound: Left leg ulcer is smaller in size and the base is a nice beefy pink color. Edema is controlled with a double tubigrip. Objective Data Objective Data Vital Signs: Vital Signs Temp Pulse Resp BP 97 F L 73 18 162/75 H 07/22/22 10:45 07/22/22 10:45 07/22/22 10:45 07/22/22 10:45 Weight: 170 lb Body Mass Index (BMI) 30.1 Charges/Coding Procedures Integumentary 150xxx-152xx: 46845 Skin sub graft trnk/arm/leg Debridement Note Debridement Note Wound debrided: lateral leg ulcer Laterality: Right Type of Debridement: Excisional debridement Anesthesia Used: 4% Lidocaine Solution and 5% Lidocaine Gel Depth: Down to and including healthy tissue and in the subcutaneous layer Percentage of wound debrided: 100 Instrument Used: 3mm curette Tissue Removed: Devitalized tissue and slough Severity: Fat Layer Exposed Amount of bleeding with debridement: Mild Bleeding Controlled with: Compression and gauze Patient tolerated procedure: Patient tolerated procedure well Post-Debridement Measurements and Additional Note: Post-Debridement Measurements/Treatment WC - Nurse 1 - General Ulcer Assessment Start: 07/15/22 10:41 Freq: Status: Active Protocol: MELISSA Activity Type Activity Date Activity User E-sign Co-sign Detail Recorded Client Recorded Date Recorded By Document 07/15/22 10:41 RB [id number] 07/15/22 10:44 RB Document 07/22/22 10:45 RB [id number] 07/22/22 10:46 RB 07/15/22 07/22/22 10:41 10:45 - Today's Visit Information Type of service Follow-up Visit Follow-up Visit (Physician/INBOUND CUSTOMER SERVICE REPRESENTATIVE (Physician/INBOUND CUSTOMER SERVICE REPRESENTATIVE ) ) Arrival Mode Ambulatory Ambulatory Transfer Assistance None None Patient Identification Verified (Name & Yes Yes ) Patient Requires Transmission-Based No No Precautions Height and Weight Body Mass Index (BMI) 30.1 30.1 BMI Classification Obese Obese Vital Signs Temperature (97.8 F-99.1 F) 97 F L 97 F L Temperature Source Temporal Temporal Pulse Rate (60-100) 94 73 Pulse Location Monitor Monitor Respiratory Rate (12-18) 18 18 Respiratory rate source Observation Observation Blood Pressure (90/60-120/80) 164/100 H 162/75 H Blood Pressure Mean (mm Hg) 121 104 Source Monitor Monitor Position Semi-Fowlers Semi-Fowlers Blood Pressure Location Left Arm Left Arm History Since Last Visit- (Skip if this is Patient's initial visit) Have you changed medications since your No No last visit? Any new allergies or adverse reactions No No Had a fall/change in ADL's that may No No increase risk of falls Signs or symptoms of abuse and/or No No neglect since last visit Have you been in the hospital since your No last visit? Has dressing in place as prescribed Yes Yes Has compression in place as prescribed Yes Yes Has offloadiing in place as prescribed No No Experienced any changes in pain level or No No management Left Footwear Regular Shoe Right Footwear Regular Shoe Pain Scale: 0-10 Numeric Is Patient Pain Free? Yes Yes - Nurse 1 - General Ulcer Measurement Start: 07/15/22 10:41 Freq: Status: Active Protocol: Activity Type Activity Date Activity User E-sign Co-sign Detail Recorded Client Recorded Date Recorded By Document 07/15/22 10:41 RB [id number] 07/15/22 10:44 RB Document 07/22/22 10:46 RB [id number] 07/22/22 10:48 RB 07/15/22 07/22/22 10:41 10:46 Wound Center Nurse 1 #1- R LAT LE -Combined with other wound No -Current Size (cm) - Length 2.2 2.2 -Current Size (cm) - Width 1.3 1.4 -Current Size (cm) - Depth 0.1 0.1 -Total Square Cm 2.86 3.08 -Photo Taken Yes Yes -Tunneling No No -Undermining/Tunneling No No -Circular Undermining No No -Exudate Amt Medium Medium -Exudate Type Serosanguineous Serosanguineous -Wound Margin Distinct, Distinct, Outline Outline Attached Attached -Granulation Amt Medium (34-66%) Medium (34-66%) -Granulation Quality [place] -Slough/Fibrin Yes Yes -Necrosis Amt Small (1-33%) Small (1-33%) -Necrotic Tissue Type Adherent Slough Adherent Slough -Structure Exposed N/A N/A -Texture (Rocio-wound Skin Appearance) Assessed Not Assessed -Moisture (Rcoio-wound Skin Appearance) Assessed Assessed -Color (Rocio-wound Skin Appearance) Assessed Assessed -Temperature (Rocio-wound Skin No Abnormality No Abnormality Appearance) (Pt Warm) (Pt Warm) -Tenderness on Palpation (Rocio-wound No No Skin Appearance) -Ulcer Cleansing Wound Cleanser Wound Cleanser -Foul Odor after Cleansing No No -Anesthetic Used 5% Lidocaine 5% Lidocaine Gel Gel Lower Limb Edema Present Yes Yes Right Calf (cm) 34 35 Right Ankle (cm) 20.2 20 WC - Nurse 2 - General Ulcer CM Notes Start: 07/15/22 10:41 Freq: Status: Active Protocol: Activity Type Activity Date Activity User E-sign Co-sign Detail Recorded Client Recorded Date Recorded By Document 07/15/22 11:01 [id number] 07/15/22 11:06 JF Document 07/22/22 11:26 [id number] 07/22/22 11:29 JF 07/15/22 07/22/22 11:01 11:26 Wound Center Nurse 2 #1- R LAT LE -Time 11:01 11:26 -Correct Patient Yes Yes -Correct Side, Site, Position Yes Yes -Correct Procedure Yes Yes -Procedure Performed Yes Yes -Type of Procedure Debridement Debridement -Clinical Debridement Subcutaneous Subcutaneous -Tissue Removed Subcutaneous Subcutaneous -Post Debridement (cm) - Length 2.2 1.5 -Post Debridement (cm) - Width 1.2 1 -Post Debridement (cm) - Depth 0.1 0.1 -Total Square (Post) (cm) 2.64 1.5 -Area of Debridement (cm) - Length 2.2 1.5 -Area of Debridement (cm) - Width 1.2 1.0 -Total Square (Area) (cm) 2.64 1.50 -Tunneling No No -Undermining/Tunneling No No -Circular Undermining No No -Wound/Ulcer Outcome Not Healed Not Healed -Ulcer Cleansing Rinsed/ Rinsed/ Irrigated with Irrigated with Saline Saline -Foul Odor after Cleansing No No -Bioengineered Tissue Yes Yes -Type of Bioengineered Tissue Epifix Epifix 18mm Disc -Expiration Date 03/11/27 04/10/27 -Product Lot Number [id number] -Percent Used 100 100 -Lot number of Saline Used [id number] -Bleeding Controlled with Pressure Pressure -Treatment Response Procedure Procedure Tolerated Well Tolerated Well -Offloading No No -Debridement - Subq, 1st 20sq cm No No -Apply Skin Sub - 1st 25 sq cm - Legs 1 1 -Epifix (per sq cm) 4 -Epifix 18mm Disc 3 Pain Scale: 0-10 Numeric Is Patient Pain Free? Yes Yes WC - Nurse 3 - General Ulcer D/C NN Start: 07/15/22 10:41 Freq: Status: Active Protocol: Activity Type Activity Date Activity User E-sign Co-sign Detail Recorded Client Recorded Date Recorded By Document 07/15/22 11:20 RB [id number] 07/15/22 11:21 RB Document 07/22/22 12:24 RB [id number] 07/22/22 12:25 RB 07/15/22 07/22/22 11:20 12:24 Wound Care Nurse 3 #1- R LAT LE -Primary Dressing Covered/Secured with Dry Gauze,Dry Dry Gauze,Dry Gauze & Roll Gauze & Roll Gauze,Secured Gauze,Secured with Tape with Tape Right -Tubular Bandage Double Layer Double Layer -Size of Tubigrip Used Size E Size E -Size E ($) 2 2 Treatment Response Procedure Tolerated Well Pain Scale: 0-10 Numeric Is Patient Pain Free? Yes Yes WC - Visit Discharge Discharge Condition Stable Stable Ambulatory Status Ambulatory Ambulatory Transportation Private Auto Private Auto Medication Reconcilliation completed & No No provided to patient/care provider Clinical Summary of Care Provided Yes Yes Assessment/Plan Assessment/Plan (1) Non-healing ulcer of lower leg: CODE(S): L97.909 - Non-pressure chronic ulcer of unspecified part of unspecified lower leg with unspecified severity (2) Dog bite of right lower leg: CODE(S): S81.851A - Open bite, right lower leg, initial encounter; W54.0XXA - Bitten by dog, initial encounter (3) Right leg pain: CODE(S): M79.604 - Pain in right leg (4) Ragland's reflex positive: CODE(S): R29.2 - Abnormal reflex PLAN: Plan Patient was evaluated at the wound center today. A subcutaneous debridement was performed as documented. She has been approved for Epifix. Wound care - Epifix #4, applied today, 100% of the product was used. Skin prep applied surrounding the ulcer, wound veil placed over the ulcer and secured with steri strips. Covered with gauze. The outer gauze dressing can be changed as needed. Do not get the ulcer or the dressing wet. Double tubigrip for compression. Wound culture obtained on 05/29/22 which was positive for Staphylococcus pseudintermediu and she has complete the Doxycycline. Discussed increasing protein intake to help promote wound healing and increasing Vitamin C 1,000 mg daily. They are going to start her on Taurus. Ultrasound of right leg obtained 07/08/22, it was negative for a DVT and valves appear competent. She is no longer having the paink. Follow up one week. Call or come in sooner if develop questions or concerns.
[2022-07-29 11:07] VITALS: BP 177/74; PULSE 91; RESP 20; TEMP 36.1; BMI 30.1
--- NOTE | 2022-07-29 12:20 | PCM.WC.PN ---
History of Present Illness Date of Service: 07/29/22 Chief Complaint: Right lateral leg ulcer after dog bite on 04/25/22 History of Wound: 81 year old female presents for evaluation of her non healing right lateral leg ulcer that occurred 04/25/22 after she was bit by her cousin's danita more dog. She has seen her PCP several times about this and been to [facility] in [place]. On 05/06/22 she was at her PCPs office due to increased pain and redness and she received a shot of Rocephin and was started on Bactrim. She was being treated with Augmentin prior to that visit. She states she also has been treated with doxycycline. She has been experiencing increased pain and discomfort. She has a medical history of HTN and some kidney issues. She had packing in from the ED that was removed after 7 days as instructed by the ED. She has been covering the ulcer with gauze. Surgery on 06/17/22 - Right lateral leg operative debridement skin and subcutaneous tissue 3x2 cm. Wound culture obtained on 05/29/22 which was positive for Staphylococcus pseudintermediu and she completed Doxycycline. Today she denies any fever, chills, nausea or vomiting. She states her appetite is good. Progress of Wound: Left leg ulcer is smaller in size and the base is a nice beefy pink color. Edema is controlled with a double tubigrip. Objective Data Objective Data Vital Signs: Vital Signs Temp Pulse Resp BP 96.9 F L 91 20 H 177/74 H 07/29/22 11:07 07/29/22 11:07 07/29/22 11:07 07/29/22 11:07 Weight: 170 lb Body Mass Index (BMI) 30.1 Charges/Coding Procedures Integumentary 150xxx-152xx: 15065 Skin sub graft trnk/arm/leg Debridement Note Debridement Note Wound debrided: lateral leg ulcer Laterality: Right Type of Debridement: Excisional debridement Anesthesia Used: 4% Lidocaine Solution and 5% Lidocaine Gel Depth: Down to and including healthy tissue and in the subcutaneous layer Percentage of wound debrided: 100 Instrument Used: 3mm curette Tissue Removed: Devitalized tissue and slough Severity: Fat Layer Exposed Amount of bleeding with debridement: Mild Bleeding Controlled with: Compression and gauze Patient tolerated procedure: Patient tolerated procedure well Post-Debridement Measurements and Additional Note: Post-Debridement Measurements/Treatment - Nurse 1 - General Ulcer Assessment Start: 07/15/22 10:41 Freq: Status: Active Protocol: MELISSA Activity Type Activity Date Activity User E-sign Co-sign Detail Recorded Client Recorded Date Recorded By Document 07/15/22 10:41 RB [id number] 07/15/22 10:44 RB Document 07/22/22 10:45 RB [id number] 07/22/22 10:46 RB Document 07/29/22 11:07 DL [id number] 07/29/22 11:13 DL 07/15/22 07/22/22 07/29/22 10:41 10:45 11:07 - Today's Visit Information Type of service Follow-up Visit Follow-up Visit Follow-up Visit (Physician/CLOUD ADMINISTRATOR (Physician/CLOUD ADMINISTRATOR (Physician/CLOUD ADMINISTRATOR ) ) ) Arrival Mode Ambulatory Ambulatory Ambulatory Transfer Assistance None None None Patient Identification Verified (Name & Yes Yes Yes ) Patient Requires Transmission-Based No No No Precautions Height and Weight Body Mass Index (BMI) 30.1 30.1 30.1 BMI Classification Obese Obese Obese Vital Signs Temperature (97.8 F-99.1 F) 97 F L 97 F L 96.9 F L Temperature Source Temporal Temporal Temporal Pulse Rate (60-100) 94 73 91 Pulse Location Monitor Monitor Monitor Respiratory Rate (12-18) 18 18 20 H Respiratory rate source Observation Observation Observation Blood Pressure (90/60-120/80) 164/100 H 162/75 H 177/74 H Blood Pressure Mean (mm Hg) 121 104 108 Source Monitor Monitor Monitor Position Semi-Fowlers Semi-Fowlers Blood Pressure Location Left Arm Left Arm History Since Last Visit- (Skip if this is Patient's initial visit) Have you changed medications since your No No No last visit? Any new allergies or adverse reactions No No No Had a fall/change in ADL's that may No No No increase risk of falls Signs or symptoms of abuse and/or No No No neglect since last visit Have you been in the hospital since your No No last visit? Has dressing in place as prescribed Yes Yes Yes Has compression in place as prescribed Yes Yes Yes Has offloadiing in place as prescribed No No N/A Experienced any changes in pain level or No No No management Left Footwear Regular Shoe Right Footwear Regular Shoe Pain Scale: 0-10 Numeric Is Patient Pain Free? Yes Yes Yes WC - Nurse 1 - General Ulcer Measurement Start: 07/15/22 10:41 Freq: Status: Active Protocol: Activity Type Activity Date Activity User E-sign Co-sign Detail Recorded Client Recorded Date Recorded By Document 07/15/22 10:41 RB [id number] 07/15/22 10:44 RB Document 07/22/22 10:46 RB [id number] 07/22/22 10:48 RB Document 07/29/22 11:07 DL [id number] 07/29/22 11:13 DL 07/15/22 07/22/22 07/29/22 10:41 10:46 11:07 Wound Center Nurse 1 #1- R LAT LE -Combined with other wound No -Current Size (cm) - Length 2.2 2.2 1.2 -Current Size (cm) - Width 1.3 1.4 1 -Current Size (cm) - Depth 0.1 0.1 0.1 -Total Square Cm 2.86 3.08 1.2 -Photo Taken Yes Yes Yes -Tunneling No No -Undermining/Tunneling No No -Circular Undermining No No -Exudate Amt Medium Medium Small -Exudate Type Serosanguineous Serosanguineous Serosanguineous -Wound Margin Distinct, Distinct, Distinct, Outline Outline Outline Attached Attached Attached -Granulation Amt Medium (34-66%) Medium (34-66%) Large (67-100%) -Granulation Quality [place] Red -Slough/Fibrin Yes Yes -Necrosis Amt Small (1-33%) Small (1-33%) None Present (0 %) -Necrotic Tissue Type Adherent Slough Adherent Slough -Structure Exposed N/A N/A N/A -Texture (Rocio-wound Skin Appearance) Assessed Not Assessed Scarring -Moisture (Rocio-wound Skin Appearance) Assessed Assessed No Abnormality -Color (Rocio-wound Skin Appearance) Assessed Assessed No Abnormality -Temperature (Rocio-wound Skin No Abnormality No Abnormality No Abnormality Appearance) (Pt Warm) (Pt Warm) (Pt Warm) -Tenderness on Palpation (Rocio-wound No No No Skin Appearance) -Ulcer Cleansing Wound Cleanser Wound Cleanser Soap and Water -Foul Odor after Cleansing No No No -Anesthetic Used 5% Lidocaine 5% Lidocaine 5% Lidocaine Gel Gel Gel Lower Limb Edema Present Yes Yes Right Calf (cm) 34 35 36 Right Ankle (cm) 20.2 20 20.5 - Nurse 2 - General Ulcer CM Notes Start: 07/15/22 10:41 Freq: Status: Active Protocol: Activity Type Activity Date Activity User E-sign Co-sign Detail Recorded Client Recorded Date Recorded By Document 07/15/22 11:01 [id number] 07/15/22 11:06 Document 07/22/22 11:26 [id number] 07/22/22 11:29 Document 07/29/22 11:26 [id number] 07/29/22 11:32 07/15/22 07/22/22 07/29/22 11:01 11:26 11:26 Wound Center Nurse 2 #1- R LAT LE -Time 11:01 11:26 11:27 -Correct Patient Yes Yes Yes -Correct Side, Site, Position Yes Yes Yes -Correct Procedure Yes Yes Yes -Procedure Performed Yes Yes Yes -Type of Procedure Debridement Debridement Debridement -Clinical Debridement Subcutaneous Subcutaneous Subcutaneous -Tissue Removed Subcutaneous Subcutaneous Subcutaneous -Post Debridement (cm) - Length 2.2 1.5 1.7 -Post Debridement (cm) - Width 1.2 1 0.6 -Post Debridement (cm) - Depth 0.1 0.1 0.1 -Total Square (Post) (cm) 2.64 1.5 1.02 -Area of Debridement (cm) - Length 2.2 1.5 1.7 -Area of Debridement (cm) - Width 1.2 1.0 0.6 -Total Square (Area) (cm) 2.64 1.50 1.02 -Tunneling No No No -Undermining/Tunneling No No No -Circular Undermining No No No -Wound/Ulcer Outcome Not Healed Not Healed Not Healed -Ulcer Cleansing Rinsed/ Rinsed/ Rinsed/ Irrigated with Irrigated with Irrigated with Saline Saline Saline -Foul Odor after Cleansing No No No -Bioengineered Tissue Yes Yes Yes -Type of Bioengineered Tissue Epifix Epifix 18mm Epifix 18mm Disc Disc -Expiration Date 03/11/27 04/10/27 04/10/27 -Product Lot Number [id number] -Percent Used 100 100 100 -Lot number of Saline Used [id number] -Bleeding Controlled with Pressure Pressure Pressure -Treatment Response Procedure Procedure Procedure Tolerated Well Tolerated Well Tolerated Well -Offloading No No No -Debridement - Subq, 1st 20sq cm No No No -Apply Skin Sub - 1st 25 sq cm - Legs 1 1 1 -Epifix (per sq cm) 4 -Epifix 18mm Disc 3 3 Pain Scale: 0-10 Numeric Is Patient Pain Free? Yes Yes Yes - Nurse 3 - General Ulcer D/C NN Start: 07/15/22 10:41 Freq: Status: Active Protocol: Activity Type Activity Date Activity User E-sign Co-sign Detail Recorded Client Recorded Date Recorded By Document 07/15/22 11:20 [id number] 07/15/22 11:21 RB Document 07/22/22 12:24 [id number] 07/22/22 12:25 RB Document 07/29/22 11:43 [facility] [id number] 07/29/22 11:43 [facility] 07/15/22 07/22/22 07/29/22 11:20 12:24 11:43 Wound Care Nurse 3 #1- R LAT LE -Primary Dressing Applied Mepilex Border -Other Dressing epifix -Primary Dressing Covered/Secured with Dry Gauze,Dry Dry Gauze,Dry Gauze & Roll Gauze & Roll Gauze,Secured Gauze,Secured with Tape with Tape -Mepilex Border 1 Right -Tubular Bandage Double Layer Double Layer -Size of Tubigrip Used Size E Size E -Size E ($) 2 2 -Other applied pts own double layer tubi Treatment Response Procedure Procedure Tolerated Well Tolerated Well Pain Scale: 0-10 Numeric Is Patient Pain Free? Yes Yes Yes - Visit Discharge Discharge Condition Stable Stable Stable Ambulatory Status Ambulatory Ambulatory Ambulatory Transportation Private Auto Private Auto Private Auto Accompanied by wallace Medication Reconcilliation completed & No No provided to patient/care provider Clinical Summary of Care Provided Yes Yes Assessment/Plan Assessment/Plan (1) Non-healing ulcer of lower leg: CODE(S): L97.909 - Non-pressure chronic ulcer of unspecified part of unspecified lower leg with unspecified severity (2) Dog bite of right lower leg: CODE(S): S81.851A - Open bite, right lower leg, initial encounter; W54.0XXA - Bitten by dog, initial encounter (3) Right leg pain: CODE(S): M79.604 - Pain in right leg (4) Ragland's reflex positive: CODE(S): R29.2 - Abnormal reflex PLAN: Plan Patient was evaluated at the wound center today. A subcutaneous debridement was performed as documented. She has been approved for Epifix. Wound care - Epifix #5, applied today, 100% of the product was used. Skin prep applied surrounding the ulcer, wound veil placed over the ulcer and secured with steri strips. Covered with gauze. The outer gauze dressing can be changed as needed. Do not get the ulcer or the dressing wet. Double tubigrip for compression. Wound culture obtained on 05/29/22 which was positive for Staphylococcus pseudintermediu and she has complete the Doxycycline. Discussed increasing protein intake to help promote wound healing and increasing Vitamin C 1,000 mg daily. They are going to start her on [place]. Ultrasound of right leg obtained 07/08/22, it was negative for a DVT and valves appear competent. She is no longer having the paink. Follow up one week. Call or come in sooner if develop questions or concerns.
[2022-08-05 11:44] VITALS: BP 129/74; PULSE 95; RESP 18; TEMP 36.1; BMI 30.1
--- NOTE | 2022-08-05 12:39 | PCM.WC.PN ---
History of Present Illness Date of Service: 08/05/22 Chief Complaint: Right lateral leg ulcer after dog bite on 04/25/22 History of Wound: 81 year old female presents for evaluation of her non healing right lateral leg ulcer that occurred 04/25/22 after she was bit by her cousin's danita more dog. She has seen her PCP several times about this and been to [facility] in [place]. On 05/06/22 she was at her PCPs office due to increased pain and redness and she received a shot of Rocephin and was started on Bactrim. She was being treated with Augmentin prior to that visit. She states she also has been treated with doxycycline. She has been experiencing increased pain and discomfort. She has a medical history of HTN and some kidney issues. She had packing in from the ED that was removed after 7 days as instructed by the ED. She has been covering the ulcer with gauze. Surgery on 06/17/22 - Right lateral leg operative debridement skin and subcutaneous tissue 3x2 cm. Wound culture obtained on 05/29/22 which was positive for Staphylococcus pseudintermediu and she completed Doxycycline. Today she denies any fever, chills, nausea or vomiting. She states her appetite is good. Progress of Wound: Right leg ulcer is much smaller in size. The base is a nice beefy pink color. Edema is controlled with a double tubigrip. Objective Data Objective Data Vital Signs: Vital Signs Temp Pulse Resp BP O2 Del Method 97 F L 95 18 129/74 H Room Air 08/05/22 11:44 08/05/22 11:44 08/05/22 11:44 08/05/22 11:44 08/05/22 11:44 Oxygen Delivery Method Room Air Weight: 170 lb Body Mass Index (BMI) 30.1 Charges/Coding Procedures Integumentary 150xxx-152xx: 88173 Skin sub graft trnk/arm/leg Debridement Note Debridement Note Wound debrided: lateral leg ulcer Laterality: Right Type of Debridement: Excisional debridement Anesthesia Used: 4% Lidocaine Solution and 5% Lidocaine Gel Depth: Down to and including healthy tissue and in the subcutaneous layer Percentage of wound debrided: 100 Instrument Used: 3mm curette Tissue Removed: Devitalized tissue and slough Severity: Fat Layer Exposed Amount of bleeding with debridement: Mild Bleeding Controlled with: Compression and gauze Patient tolerated procedure: Patient tolerated procedure well Post-Debridement Measurements and Additional Note: Post-Debridement Measurements/Treatment WC - Nurse 1 - General Ulcer Assessment Start: 07/15/22 10:41 Freq: Status: Active Protocol: MELISSA Activity Type Activity Date Activity User E-sign Co-sign Detail Recorded Client Recorded Date Recorded By Document 07/15/22 10:41 RB [id number] 07/15/22 10:44 RB Document 07/22/22 10:45 RB [id number] 07/22/22 10:46 RB Document 07/29/22 11:07 DL [id number] 07/29/22 11:13 DL Document 08/05/22 11:44 MT [id number] 08/05/22 11:49 MT 07/15/22 07/22/22 07/29/22 10:41 10:45 11:07 - Today's Visit Information Type of service Follow-up Visit Follow-up Visit Follow-up Visit (Physician/COMPUTER HARDWARE TECHNICIAN (Physician/COMPUTER HARDWARE TECHNICIAN (Physician/COMPUTER HARDWARE TECHNICIAN ) ) ) Arrival Mode Ambulatory Ambulatory Ambulatory Transfer Assistance None None None Accompanied by Patient Identification Verified (Name & Yes Yes Yes ) Patient Requires Transmission-Based No No No Precautions Height and Weight Body Mass Index (BMI) 30.1 30.1 30.1 BMI Classification Obese Obese Obese Vital Signs Temperature (97.8 F-99.1 F) 97 F L 97 F L 96.9 F L Temperature Source Temporal Temporal Temporal Pulse Rate (60-100) 94 73 91 Pulse Location Monitor Monitor Monitor Respiratory Rate (12-18) 18 18 20 H Respiratory rate source Observation Observation Observation Oxygen Delivery Method Blood Pressure (90/60-120/80) 164/100 H 162/75 H 177/74 H Blood Pressure Mean (mm Hg) 121 104 108 Source Monitor Monitor Monitor Position Semi-Fowlers Semi-Fowlers Blood Pressure Location Left Arm Left Arm History Since Last Visit- (Skip if this is Patient's initial visit) Have you changed medications since your No No No last visit? Any new allergies or adverse reactions No No No Had a fall/change in ADL's that may No No No increase risk of falls Signs or symptoms of abuse and/or No No No neglect since last visit Have you been in the hospital since your No No last visit? Has dressing in place as prescribed Yes Yes Yes Has compression in place as prescribed Yes Yes Yes Has offloadiing in place as prescribed No No N/A Experienced any changes in pain level or No No No management Left Footwear Regular Shoe Right Footwear Regular Shoe Pain Scale: 0-10 Numeric Is Patient Pain Free? Yes Yes Yes 08/05/22 11:44 WC - Today's Visit Information Type of service Follow-up Visit (Physician/COMPUTER HARDWARE TECHNICIAN ) Arrival Mode Ambulatory Transfer Assistance Accompanied by daughter and daughter in law Patient Identification Verified (Name & Yes ) Patient Requires Transmission-Based Precautions Height and Weight Body Mass Index (BMI) 30.1 BMI Classification Obese Vital Signs Temperature (97.8 F-99.1 F) 97 F L Temperature Source Temporal Pulse Rate (60-100) 95 Pulse Location Monitor Respiratory Rate (12-18) 18 Respiratory rate source Observation Oxygen Delivery Method Room Air Blood Pressure (90/60-120/80) 129/74 H Blood Pressure Mean (mm Hg) 92 Source Monitor Position Sitting Blood Pressure Location Left Arm History Since Last Visit- (Skip if this is Patient's initial visit) Have you changed medications since your last visit? Any new allergies or adverse reactions Had a fall/change in ADL's that may increase risk of falls Signs or symptoms of abuse and/or neglect since last visit Have you been in the hospital since your Yes last visit? Has dressing in place as prescribed Yes Has compression in place as prescribed Yes Has offloadiing in place as prescribed Yes Experienced any changes in pain level or Yes management Left Footwear Regular Shoe Right Footwear Regular Shoe Pain Scale: 0-10 Numeric Is Patient Pain Free? Yes - Nurse 1 - General Ulcer Measurement Start: 07/15/22 10:41 Freq: Status: Active Protocol: Activity Type Activity Date Activity User E-sign Co-sign Detail Recorded Client Recorded Date Recorded By Document 07/15/22 10:41 RB [id number] 07/15/22 10:44 RB Document 07/22/22 10:46 RB [id number] 07/22/22 10:48 RB Document 07/29/22 11:07 DL [id number] 07/29/22 11:13 DL Document 08/05/22 11:44 MT [id number] 08/05/22 11:49 MT 07/15/22 07/22/22 07/29/22 10:41 10:46 11:07 Wound Center Nurse 1 #1- R LAT LE -Combined with other wound No -Current Size (cm) - Length 2.2 2.2 1.2 -Current Size (cm) - Width 1.3 1.4 1 -Current Size (cm) - Depth 0.1 0.1 0.1 -Total Square Cm 2.86 3.08 1.2 -Photo Taken Yes Yes Yes -Tunneling No No -Undermining/Tunneling No No -Circular Undermining No No -Exudate Amt Medium Medium Small -Exudate Type Serosanguineous Serosanguineous Serosanguineous -Wound Margin Distinct, Distinct, Distinct, Outline Outline Outline Attached Attached Attached -Granulation Amt Medium (34-66%) Medium (34-66%) Large (67-100%) -Granulation Quality [place] Red -Slough/Fibrin Yes Yes -Necrosis Amt Small (1-33%) Small (1-33%) None Present (0 %) -Necrotic Tissue Type Adherent Slough Adherent Slough -Structure Exposed N/A N/A N/A -Texture (Rocio-wound Skin Appearance) Assessed Not Assessed Scarring -Moisture (Rocio-wound Skin Appearance) Assessed Assessed No Abnormality -Color (Rocio-wound Skin Appearance) Assessed Assessed No Abnormality -Temperature (Rocio-wound Skin No Abnormality No Abnormality No Abnormality Appearance) (Pt Warm) (Pt Warm) (Pt Warm) -Tenderness on Palpation (Rocio-wound No No No Skin Appearance) -Ulcer Cleansing Wound Cleanser Wound Cleanser Soap and Water -Foul Odor after Cleansing No No No -Anesthetic Used 5% Lidocaine 5% Lidocaine 5% Lidocaine Gel Gel Gel Lower Limb Edema Present Yes Yes Right Calf (cm) 34 35 36 Right Ankle (cm) 20.2 20 20.5 08/05/22 11:44 Wound Center Nurse 1 #1- R LAT LE -Combined with other wound -Current Size (cm) - Length 1.6 -Current Size (cm) - Width 0.9 -Current Size (cm) - Depth 0.1 -Total Square Cm 1.44 -Photo Taken -Tunneling -Undermining/Tunneling -Circular Undermining -Exudate Amt Small -Exudate Type Serous -Wound Margin Flat & Intact -Granulation Amt Medium (34-66%) -Granulation Quality Pale,[place] -Slough/Fibrin -Necrosis Amt Medium (34-66%) -Necrotic Tissue Type Adherent Slough -Structure Exposed -Texture (Rocio-wound Skin Appearance) Assessed -Moisture (Rocio-wound Skin Appearance) Assessed -Color (Rocio-wound Skin Appearance) Assessed -Temperature (Rocio-wound Skin No Abnormality Appearance) (Pt Warm) -Tenderness on Palpation (Rocio-wound No Skin Appearance) -Ulcer Cleansing Soap and Water -Foul Odor after Cleansing No -Anesthetic Used 4% Lidocaine Solution Lower Limb Edema Present Right Calf (cm) 36.5 Right Ankle (cm) 20 WC - Nurse 2 - General Ulcer CM Notes Start: 07/15/22 10:41 Freq: Status: Active Protocol: Activity Type Activity Date Activity User E-sign Co-sign Detail Recorded Client Recorded Date Recorded By Document 07/15/22 11:01 [id number] 07/15/22 11:06 Document 07/22/22 11:26 [id number] 07/22/22 11:29 Document 07/29/22 11:26 [id number] 07/29/22 11:32 Document 08/05/22 12:12 [id number] 08/05/22 12:19 07/15/22 07/22/22 07/29/22 11:01 11:26 11:26 Wound Center Nurse 2 #1- R LAT LE -Time 11:01 11:26 11:27 -Correct Patient Yes Yes Yes -Correct Side, Site, Position Yes Yes Yes -Correct Procedure Yes Yes Yes -Procedure Performed Yes Yes Yes -Type of Procedure Debridement Debridement Debridement -Clinical Debridement Subcutaneous Subcutaneous Subcutaneous -Tissue Removed Subcutaneous Subcutaneous Subcutaneous -Post Debridement (cm) - Length 2.2 1.5 1.7 -Post Debridement (cm) - Width 1.2 1 0.6 -Post Debridement (cm) - Depth 0.1 0.1 0.1 -Total Square (Post) (cm) 2.64 1.5 1.02 -Area of Debridement (cm) - Length 2.2 1.5 1.7 -Area of Debridement (cm) - Width 1.2 1.0 0.6 -Total Square (Area) (cm) 2.64 1.50 1.02 -Tunneling No No No -Undermining/Tunneling No No No -Circular Undermining No No No -Wound/Ulcer Outcome Not Healed Not Healed Not Healed -Ulcer Cleansing Rinsed/ Rinsed/ Rinsed/ Irrigated with Irrigated with Irrigated with Saline Saline Saline -Foul Odor after Cleansing No No No -Bioengineered Tissue Yes Yes Yes -Type of Bioengineered Tissue Epifix Epifix 18mm Epifix 18mm Disc Disc -Expiration Date 03/11/27 04/10/27 04/10/27 -Product Lot Number [id number] -Percent Used 100 100 100 -Lot number of Saline Used [id number] -Bleeding Controlled with Pressure Pressure Pressure -Treatment Response Procedure Procedure Procedure Tolerated Well Tolerated Well Tolerated Well -Offloading No No No -Debridement - Subq, 1st 20sq cm No No No -Apply Skin Sub - 1st 25 sq cm - Legs 1 1 1 -Epifix (per sq cm) 4 -Epifix 18mm Disc 3 3 Pain Scale: 0-10 Numeric Is Patient Pain Free? Yes Yes Yes 08/05/22 12:12 Wound Center Nurse 2 #1- R LAT LE -Time 12:17 -Correct Patient Yes -Correct Side, Site, Position Yes -Correct Procedure Yes -Procedure Performed Yes -Type of Procedure Debridement -Clinical Debridement Subcutaneous -Tissue Removed Subcutaneous -Post Debridement (cm) - Length 1.5 -Post Debridement (cm) - Width 0.7 -Post Debridement (cm) - Depth 0.1 -Total Square (Post) (cm) 1.05 -Area of Debridement (cm) - Length 1.5 -Area of Debridement (cm) - Width 0.7 -Total Square (Area) (cm) 1.05 -Tunneling No -Undermining/Tunneling No -Circular Undermining No -Wound/Ulcer Outcome Not Healed -Ulcer Cleansing Rinsed/ Irrigated with Saline -Foul Odor after Cleansing No -Bioengineered Tissue Yes -Type of Bioengineered Tissue Epifix 18mm Disc -Expiration Date 04/10/27 -Product Lot Number [id number] -Percent Used 100 -Lot number of Saline Used [id number] -Bleeding Controlled with Pressure -Treatment Response Procedure Tolerated Well -Offloading No -Debridement - Subq, 1st 20sq cm No -Apply Skin Sub - 1st 25 sq cm - Legs 1 -Epifix (per sq cm) -Epifix 18mm Disc 3 Pain Scale: 0-10 Numeric Is Patient Pain Free? Yes - Nurse 3 - General Ulcer D/C NN Start: 07/15/22 10:41 Freq: Status: Active Protocol: Activity Type Activity Date Activity User E-sign Co-sign Detail Recorded Client Recorded Date Recorded By Document 07/15/22 11:20 RB [id number] 07/15/22 11:21 RB Document 07/22/22 12:24 [id number] 07/22/22 12:25 RB Document 07/29/22 11:43 [facility] [id number] 07/29/22 11:43 [facility] Document 08/05/22 12:19 [id number] 08/05/22 12:19 07/15/22 07/22/22 07/29/22 11:20 12:24 11:43 Wound Care Nurse 3 #1- R LAT LE -Ulcer Cleansing -Foul Odor after Cleansing -Primary Dressing Applied Mepilex Border -Other Dressing epifix -Primary Dressing Covered/Secured with Dry Gauze,Dry Dry Gauze,Dry Gauze & Roll Gauze & Roll Gauze,Secured Gauze,Secured with Tape with Tape -Mepilex Border 1 Right -Tubular Bandage Double Layer Double Layer -Size of Tubigrip Used Size E Size E -Size E ($) 2 2 -Other applied pts own double layer tubi Treatment Response Procedure Procedure Tolerated Well Tolerated Well Pain Scale: 0-10 Numeric Is Patient Pain Free? Yes Yes Yes - Visit Discharge Discharge Condition Stable Stable Stable Ambulatory Status Ambulatory Ambulatory Ambulatory Transportation Private Auto Private Auto Private Auto Accompanied by wallace Medication Reconcilliation completed & No No provided to patient/care provider Clinical Summary of Care Provided Yes Yes 08/05/22 12:19 Wound Care Nurse 3 #1- R LAT LE -Ulcer Cleansing Rinsed/ Irrigated with Saline -Foul Odor after Cleansing No -Primary Dressing Applied Mepilex Border -Other Dressing -Primary Dressing Covered/Secured with Dry Gauze -Mepilex Border 1 Right -Tubular Bandage Double Layer -Size of Tubigrip Used Size E -Size E ($) 0 -Other Treatment Response Pain Scale: 0-10 Numeric Is Patient Pain Free? Yes WC - Visit Discharge Discharge Condition Stable Ambulatory Status Ambulatory Transportation Private Auto Accompanied by daughters Medication Reconcilliation completed & Yes provided to patient/care provider Clinical Summary of Care Provided Yes Assessment/Plan Assessment/Plan (1) Non-healing ulcer of lower leg: CODE(S): L97.909 - Non-pressure chronic ulcer of unspecified part of unspecified lower leg with unspecified severity (2) Dog bite of right lower leg: CODE(S): S81.851A - Open bite, right lower leg, initial encounter; W54.0XXA - Bitten by dog, initial encounter (3) Right leg pain: CODE(S): M79.604 - Pain in right leg (4) Ragland's reflex positive: CODE(S): R29.2 - Abnormal reflex PLAN: Plan Patient was evaluated at the wound center today. A subcutaneous debridement was performed as documented. She has been approved for Epifix. Wound care - Epifix #6, applied today, 100% of the product was used. Skin prep applied surrounding the ulcer, wound veil placed over the ulcer and secured with steri strips. Collagen hydrogel was placed over the wound veil to provide increased moisture to the ulcer. Covered with Mepilex silicone border dressing. The outer dressing can be changed as needed. Do not get the ulcer or the dressing wet. Double tubigrip for compression. Wound culture obtained on 05/29/22 which was positive for Staphylococcus pseudintermediu and she has complete the Doxycycline. Discussed increasing protein intake to help promote wound healing and increasing Vitamin C 1,000 mg daily. They are going to start her on Taurus. Ultrasound of right leg obtained 07/08/22, it was negative for a DVT and valves appear competent. She is no longer having the paink. Follow up one week. Call or come in sooner if develop questions or concerns.
== END 2022-08-10 23:59 | disposition home or self-care (01) ==
LOC: WC 11:30
PROVIDERS: Visit Provider Nurse Practitioner Family
DX: L97.902 Non-pressure chronic ulcer of unspecified part of unspecified lower leg with fat layer exposed (principal); M79.604 Pain in right leg; I10 Essential (primary) hypertension; S81.851D Open bite, right lower leg, subsequent encounter; W54.0XXD Bitten by dog, subsequent encounter; R29.2 Abnormal reflex
CPT/HCPCS: 15271; Q4186

== ENCOUNTER 2022-08-19 10:30 | Outpatient (RCR) | payer MEDICARE, MEDICAID, SELFPAY ==
[2022-08-11 00:40] VITALS: BP 129/74; PULSE 95; RESP 18; TEMP 36.1; BMI 30.1
[2022-08-12 11:31] VITALS: BP 147/77; PULSE 77; RESP 16; TEMP 35.5; BMI 30.1
--- NOTE | 2022-08-12 13:50 | PCM.WC.PN ---
History of Present Illness Date of Service: 08/12/22 Chief Complaint: Right lateral leg ulcer after dog bite on 04/25/22 History of Wound: 81 year old female presents for evaluation of her non healing right lateral leg ulcer that occurred 04/25/22 after she was bit by her cousin's danita more dog. She has seen her PCP several times about this and been to [facility] in [place]. On 05/06/22 she was at her PCPs office due to increased pain and redness and she received a shot of Rocephin and was started on Bactrim. She was being treated with Augmentin prior to that visit. She states she also has been treated with doxycycline. She has been experiencing increased pain and discomfort. She has a medical history of HTN and some kidney issues. She had packing in from the ED that was removed after 7 days as instructed by the ED. She has been covering the ulcer with gauze. Surgery on 06/17/22 - Right lateral leg operative debridement skin and subcutaneous tissue 3x2 cm. Wound culture obtained on 05/29/22 which was positive for Staphylococcus pseudintermediu and she completed Doxycycline. Today she denies any fever, chills, nausea or vomiting. She states her appetite is good. Progress of Wound: Right leg ulcer is much smaller after 6 treatments of Epifix. Base of ulcer is beefy pink. Objective Data Objective Data Vital Signs: Vital Signs Temp Pulse Resp BP O2 Del Method 95.9 F L 77 16 147/77 H Room Air 08/12/22 11:31 08/12/22 11:31 08/12/22 11:31 08/12/22 11:31 08/12/22 11:31 Oxygen Delivery Method Room Air Weight: 170 lb Body Mass Index (BMI) 30.1 Charges/Coding Procedures Integumentary 111xxx-113xx: 27147 Feli subq tissue 20 sq cm/< Debridement Note Debridement Note Wound debrided: lateral leg ulcer Laterality: Right Type of Debridement: Excisional debridement Anesthesia Used: 4% Lidocaine Solution and 5% Lidocaine Gel Depth: Down to and including healthy tissue and in the subcutaneous layer Percentage of wound debrided: 100 Instrument Used: 3mm curette Tissue Removed: Devitalized tissue and slough Severity: Fat Layer Exposed Amount of bleeding with debridement: Mild Bleeding Controlled with: Compression and gauze Patient tolerated procedure: Patient tolerated procedure well Post-Debridement Measurements and Additional Note: Post-Debridement Measurements/Treatment - Nurse 1 - General Ulcer Assessment Start: 08/12/22 11:31 Freq: Status: Active Protocol: MELISSA Activity Type Activity Date Activity User E-sign Co-sign Detail Recorded Client Recorded Date Recorded By Document 08/12/22 11:31 [facility] [id number] 08/12/22 11:40 [facility] 08/12/22 11:31 WC - Today's Visit Information Type of service Follow-up Visit (Physician/FINISHING INSPECTOR ) Arrival Mode Ambulatory Transfer Assistance None Accompanied by daughters Patient Identification Verified (Name & Yes ) Patient Requires Transmission-Based No Precautions Height and Weight Body Mass Index (BMI) 30.1 BMI Classification Obese Vital Signs Temperature (97.8 F-99.1 F) 95.9 F L Temperature Source Temporal Pulse Rate (60-100) 77 Pulse Location Monitor Respiratory Rate (12-18) 16 Respiratory rate source Observation Oxygen Delivery Method Room Air Blood Pressure (90/60-120/80) 147/77 H Blood Pressure Mean (mm Hg) 100 Source Monitor Position Sitting Blood Pressure Location Right Arm History Since Last Visit- (Skip if this is Patient's initial visit) Have you changed medications since your No last visit? Any new allergies or adverse reactions No Had a fall/change in ADL's that may No increase risk of falls Signs or symptoms of abuse and/or No neglect since last visit Have you been in the hospital since your No last visit? Has dressing in place as prescribed Yes Has compression in place as prescribed Yes Has offloadiing in place as prescribed N/A Experienced any changes in pain level or No management Left Footwear Regular Shoe Right Footwear Regular Shoe Pain Scale: 0-10 Numeric Is Patient Pain Free? Yes - Nurse 1 - General Ulcer Measurement Start: 08/12/22 11:31 Freq: Status: Active Protocol: Activity Type Activity Date Activity User E-sign Co-sign Detail Recorded Client Recorded Date Recorded By Document 08/12/22 11:31 [facility] [id number] 08/12/22 11:40 [facility] 08/12/22 11:31 Wound Center Nurse 1 #1- R LAT LE -Combined with other wound No -Current Size (cm) - Length 1.3 -Current Size (cm) - Width 0.5 -Current Size (cm) - Depth 0.1 -Total Square Cm 0.65 -Date of Last Picture (Recall this 08/12/22 field) -Photo Taken Yes -Epithelialization None Present -Tunneling No -Undermining/Tunneling No -Circular Undermining No -Exudate Amt None Present -Wound Margin Distinct, Outline Attached -Granulation Amt None Present (0 %) -Slough/Fibrin Yes -Necrosis Amt Large (67-100%) -Necrotic Tissue Type Eschar -Texture (Rocio-wound Skin Appearance) Assessed, Scarring -Moisture (Rocio-wound Skin Appearance) Assessed,Dry/ Scaly -Color (Rocio-wound Skin Appearance) Assessed -Temperature (Rocio-wound Skin No Abnormality Appearance) (Pt Warm) -Tenderness on Palpation (Rocio-wound No Skin Appearance) -Ulcer Cleansing Soap and Water -Foul Odor after Cleansing No -Anesthetic Used 5% Lidocaine Gel Lower Limb Edema Present Yes Right Calf (cm) 36.2 Right Ankle (cm) 20.4 WC - Nurse 2 - General Ulcer CM Notes Start: 08/12/22 11:31 Freq: Status: Active Protocol: Activity Type Activity Date Activity User E-sign Co-sign Detail Recorded Client Recorded Date Recorded By Document 08/12/22 11:55 [id number] 08/12/22 11:57 LUCY 08/12/22 11:55 Wound Center Nurse 2 #1- R LAT LE -Time 11:56 -Correct Patient Yes -Correct Side, Site, Position Yes -Correct Procedure Yes -Procedure Performed Yes -Type of Procedure Debridement -Clinical Debridement Subcutaneous -Tissue Removed Subcutaneous -Post Debridement (cm) - Length 1.2 -Post Debridement (cm) - Width 0.2 -Post Debridement (cm) - Depth 0.1 -Total Square (Post) (cm) 0.24 -Area of Debridement (cm) - Length 1.2 -Area of Debridement (cm) - Width 0.2 -Total Square (Area) (cm) 0.24 -Tunneling No -Undermining/Tunneling No -Circular Undermining No -Wound/Ulcer Outcome Healed- Surgical Closure -Foul Odor after Cleansing No -Bioengineered Tissue No -Bleeding Controlled with Pressure -Treatment Response Procedure Tolerated Well -Offloading No -Debridement - Subq, 1st 20sq cm Yes Pain Scale: 0-10 Numeric Is Patient Pain Free? Yes WC - Nurse 3 - General Ulcer D/C NN Start: 08/12/22 11:31 Freq: Status: Active Protocol: Activity Type Activity Date Activity User E-sign Co-sign Detail Recorded Client Recorded Date Recorded By Document 08/12/22 12:06 DL [id number] 08/12/22 12:07 DL 08/12/22 12:06 Wound Care Nurse 3 #1- R LAT LE -Ulcer Cleansing Rinsed/ Irrigated with Saline -Foul Odor after Cleansing No -Primary Dressing Applied NonAdherent Contact Layer -Other Dressing hydrogel -Primary Dressing Covered/Secured with Dry Gauze & Roll Gauze, Secured with Tape Right -Tubular Bandage Double Layer -Size of Tubigrip Used Size E -Size E ($) 2 Treatment Response Procedure Tolerated Well Pain Scale: 0-10 Numeric Is Patient Pain Free? Yes WC - Visit Discharge Discharge Condition Stable Ambulatory Status Ambulatory Transportation Private Auto Accompanied by family Assessment/Plan Assessment/Plan (1) Non-healing ulcer of lower leg: CODE(S): L97.909 - Non-pressure chronic ulcer of unspecified part of unspecified lower leg with unspecified severity (2) Dog bite of right lower leg: CODE(S): S81.851A - Open bite, right lower leg, initial encounter; W54.0XXA - Bitten by dog, initial encounter (3) Right leg pain: CODE(S): M79.604 - Pain in right leg (4) Ragland's reflex positive: CODE(S): R29.2 - Abnormal reflex PLAN: Plan Patient was evaluated at the wound center today. A subcutaneous debridement was performed as documented. She has been approved for Epifix. Wound care - She has had six applications of Epifix #6. Will [address] collagen hydrogel covered with adaptic and topped with gauze daily to the ulcer. She should wash the ulcer daily with soap and water at the time of the dressing change. Wound culture obtained on 05/29/22 which was positive for Staphylococcus pseudintermediu and she has complete the Doxycycline. Discussed increasing protein intake to help promote wound healing and increasing Vitamin C 1,000 mg daily. They are going to start her on Taurus. Ultrasound of right leg obtained 9/28/22, it was negative for a DVT and valves appear competent. She is no longer having the paink. Follow up one week. Call or come in sooner if develop questions or concerns.
[2022-08-19 10:28] VITALS: BP 138/74; PULSE 72; RESP 18; TEMP 36.9; BMI 30.1
--- NOTE | 2022-08-19 11:30 | PCM.WC.PN ---
History of Present Illness Date of Service: 08/19/22 Chief Complaint: Right lateral leg ulcer after dog bite on 04/25/22 History of Wound: 81 year old female presents for evaluation of her non healing right lateral leg ulcer that occurred 04/25/22 after she was bit by her cousin's danita more dog. She has seen her PCP several times about this and been to [facility] in [place]. On 05/06/22 she was at her PCPs office due to increased pain and redness and she received a shot of Rocephin and was started on Bactrim. She was being treated with Augmentin prior to that visit. She states she also has been treated with doxycycline. She has been experiencing increased pain and discomfort. She has a medical history of HTN and some kidney issues. She had packing in from the ED that was removed after 7 days as instructed by the ED. She has been covering the ulcer with gauze. Surgery on 06/17/22 - Right lateral leg operative debridement skin and subcutaneous tissue 3x2 cm. Wound culture obtained on 05/29/22 which was positive for Staphylococcus pseudintermediu and she completed Doxycycline. Today she denies any fever, chills, nausea or vomiting. She states her appetite is good. Progress of Wound: Right leg ulcer is healed today. Objective Data Objective Data Vital Signs: Vital Signs Temp Pulse Resp BP O2 Del Method 98.5 F 72 18 138/74 H Room Air 08/19/22 10:28 08/19/22 10:28 08/19/22 10:28 08/19/22 10:28 08/12/22 11:31 Oxygen Delivery Method Room Air Weight: 170 lb Body Mass Index (BMI) 30.1 Charges/Coding Visit Charges Office Visits / Consults: 48816 OV L3 Est Physical Exam Const alert, oriented x3 and no apparent distress General Appearance: cooperative HEENT normocephalic Resp normal respiratory effort, no use of accessory muscles and clear to auscultation bilaterally Effort and Inspection: able to speak in complete sentences Cardio regular rate and regular rhythm Extremity Extremity Narrative: +1 edema right leg. Right pedal pulse +2. Skin Wound Narrative: Right lateral leg ulcer is healed. Neuro CN's II-XII intact bilaterally Psych affect normal Debridement Note Debridement Note No debridement was completed: No debridement was completed today Post-Debridement Measurements and Additional Note: Post-Debridement Measurements/Treatment - Nurse 1 - General Ulcer Assessment Start: 08/12/22 11:31 Freq: Status: Active Protocol: MELISSA Activity Type Activity Date Activity User E-sign Co-sign Detail Recorded Client Recorded Date Recorded By Document 08/12/22 11:31 [facility] [id number] 08/12/22 11:40 BMF Document 08/19/22 10:28 DL [id number] 08/19/22 10:34 DL 08/12/22 08/19/22 11:31 10:28 - Today's Visit Information Type of service Follow-up Visit Follow-up Visit (Physician/FAMILY RESOURCE COORDINATOR (Physician/FAMILY RESOURCE COORDINATOR ) ) Arrival Mode Ambulatory Ambulatory Transfer Assistance None None Accompanied by daughters Patient Identification Verified (Name & Yes Yes ) Patient Requires Transmission-Based No No Precautions Height and Weight Body Mass Index (BMI) 30.1 30.1 BMI Classification Obese Obese Vital Signs Temperature (97.8 F-99.1 F) 95.9 F L 98.5 F Temperature Source Temporal Temporal Pulse Rate (60-100) 77 72 Pulse Location Monitor Monitor Respiratory Rate (12-18) 16 18 Respiratory rate source Observation Observation Oxygen Delivery Method Room Air Blood Pressure (90/60-120/80) 147/77 H 138/74 H Blood Pressure Mean (mm Hg) 100 95 Source Monitor Monitor Position Sitting Blood Pressure Location Right Arm History Since Last Visit- (Skip if this is Patient's initial visit) Have you changed medications since your No No last visit? Any new allergies or adverse reactions No No Had a fall/change in ADL's that may No No increase risk of falls Signs or symptoms of abuse and/or No No neglect since last visit Have you been in the hospital since your No No last visit? Has dressing in place as prescribed Yes Yes Has compression in place as prescribed Yes Yes Has offloadiing in place as prescribed N/A N/A Experienced any changes in pain level or No No management Left Footwear Regular Shoe Right Footwear Regular Shoe Pain Scale: 0-10 Numeric Is Patient Pain Free? Yes Yes AILYN Wallace Nurse 1 - General Ulcer Measurement Start: 08/12/22 11:31 Freq: Status: Active Protocol: Activity Type Activity Date Activity User E-sign Co-sign Detail Recorded Client Recorded Date Recorded By Document 08/12/22 11:31 [facility] [id number] 08/12/22 11:40 BMF Document 08/19/22 10:28 DL [id number] 08/19/22 10:34 DL 08/12/22 08/19/22 11:31 10:28 Wound Center Nurse 1 #1- R LAT LE -Combined with other wound No -Current Size (cm) - Length 1.3 0 -Current Size (cm) - Width 0.5 0 -Current Size (cm) - Depth 0.1 0 -Total Square Cm 0.65 0 -Date of Last Picture (Recall this 08/12/22 field) -Photo Taken Yes Yes -Epithelialization None Present -Tunneling No -Undermining/Tunneling No -Circular Undermining No -Exudate Amt None Present None Present -Wound Margin Distinct, Flat & Intact Outline Attached -Granulation Amt None Present (0 Large (67-100%) %) -Granulation Quality Seav[place] -Slough/Fibrin Yes -Necrosis Amt Large (67-100%) None Present (0 %) -Necrotic Tissue Type Eschar -Structure Exposed N/A -Texture (Rocio-wound Skin Appearance) Assessed, Scarring Scarring -Moisture (Rocio-wound Skin Appearance) Assessed,Dry/ No Abnormality Scaly -Color (Rocio-wound Skin Appearance) Assessed No Abnormality -Temperature (Rocio-wound Skin No Abnormality No Abnormality Appearance) (Pt Warm) (Pt Warm) -Tenderness on Palpation (Rocio-wound No No Skin Appearance) -Ulcer Cleansing Soap and Water Rinsed/ Irrigated with Saline -Foul Odor after Cleansing No No -Anesthetic Used 5% Lidocaine Gel Lower Limb Edema Present Yes Right Calf (cm) 36.2 Right Ankle (cm) 20.4 WC - Nurse 2 - General Ulcer CM Notes Start: 08/12/22 11:31 Freq: Status: Active Protocol: Activity Type Activity Date Activity User E-sign Co-sign Detail Recorded Client Recorded Date Recorded By Document 08/12/22 11:55 [id number] 08/12/22 11:57 Document 08/19/22 10:43 [id number] 08/19/22 10:43 JF 08/12/22 08/19/22 11:55 10:43 Wound Center Nurse 2 #1- R LAT LE -Time 11:56 -Correct Patient Yes No -Correct Side, Site, Position Yes No -Correct Procedure Yes No -Procedure Performed Yes No -Type of Procedure Debridement -Clinical Debridement Subcutaneous -Tissue Removed Subcutaneous -Post Debridement (cm) - Length 1.2 0 -Post Debridement (cm) - Width 0.2 0 -Post Debridement (cm) - Depth 0.1 0 -Total Square (Post) (cm) 0.24 0 -Area of Debridement (cm) - Length 1.2 0 -Area of Debridement (cm) - Width 0.2 0 -Total Square (Area) (cm) 0.24 0 -Tunneling No -Undermining/Tunneling No -Circular Undermining No -Wound/Ulcer Outcome Healed- Healed- Surgical Epithelialized Closure -Foul Odor after Cleansing No -Bioengineered Tissue No -Bleeding Controlled with Pressure -Treatment Response Procedure Tolerated Well -Offloading No -Debridement - Subq, 1st 20sq cm Yes Pain Scale: 0-10 Numeric Is Patient Pain Free? Yes Yes - Nurse 3 - General Ulcer D/C NN Start: 08/12/22 11:31 Freq: Status: Active Protocol: Activity Type Activity Date Activity User E-sign Co-sign Detail Recorded Client Recorded Date Recorded By Document 08/12/22 12:06 [id number] 08/12/22 12:07 Document 08/19/22 10:44 [id number] 08/19/22 10:44 08/12/22 08/19/22 12:06 10:44 Wound Care Nurse 3 #1- R LAT LE -Ulcer Cleansing Rinsed/ Irrigated with Saline -Foul Odor after Cleansing No -Primary Dressing Applied NonAdherent Contact Layer -Other Dressing hydrogel -Primary Dressing Covered/Secured with Dry Gauze & Roll Gauze, Secured with Tape Right -Tubular Bandage Double Layer Double Layer -Size of Tubigrip Used Size E Size E -Size E ($) 2 2 Treatment Response Procedure Tolerated Well Pain Scale: 0-10 Numeric Is Patient Pain Free? Yes Yes - Visit Discharge Discharge Condition Stable Stable Ambulatory Status Ambulatory Ambulatory Transportation Private Auto Private Auto Accompanied by family Medication Reconcilliation completed & Yes provided to patient/care provider Clinical Summary of Care Provided Yes Assessment/Plan Assessment/Plan (1) Non-healing ulcer of lower leg: CODE(S): L97.909 - Non-pressure chronic ulcer of unspecified part of unspecified lower leg with unspecified severity (2) Dog bite of right lower leg: CODE(S): S81.851A - Open bite, right lower leg, initial encounter; W54.0XXA - Bitten by dog, initial encounter (3) Right leg pain: CODE(S): M79.604 - Pain in right leg PLAN: Plan Patient was evaluated at the wound center today. She has been approved for Epifix. Wound care - She has had six applications of Epifix #6. She is healed today. She is encouraged to massage the healed area with lotion daily to help soften the scar tissue. It was recommended to the patient to use sunscreen when outside to help minimize darkening of the healing scars. She will wear a double tubigrip for compression for another couple weeks until the scarring becomes less fragile. Wound culture obtained on 05/29/22 which was positive for Staphylococcus pseudintermediu and she has complete the Doxycycline. Ultrasound of right leg obtained 07/08/22, it was negative for a DVT and valves appear competent. She is no longer having the paink. Follow up as needed. Call or come in sooner if develop questions or concerns.
== END 2022-08-20 10:55 | disposition home or self-care (01) ==
LOC: WC 10:30
PROVIDERS: Visit Provider Nurse Practitioner Family
DX: S81.851A Open bite, right lower leg, initial encounter (principal); L97.902 Non-pressure chronic ulcer of unspecified part of unspecified lower leg with fat layer exposed; M79.604 Pain in right leg; I10 Essential (primary) hypertension; W54.0XXA Bitten by dog, initial encounter; R29.2 Abnormal reflex
CPT/HCPCS: 11042; 99213; G0463